=== PATIENT | female | born 1990 | race Caucasian/White ===

== ENCOUNTER 2016-12-10 13:45 | Emergency (ER) | payer OTHER ==
[~2016-12-10] VITALS: Ht 154.9 cm; Wt 60.0 kg
[~2016-12-10 13:45] MED LIST: APIDINJ; AZIT250T74 PO; CEFU1TAB43 PO; DIFL150T PO; FIORIC PO; REGL5TAB PO; TRAM50 PO
[2016-12-10 13:49] VITALS: BP 128/88; PULSE 107; RESP 16; TEMP 98.1; O2SAT 98
[2016-12-10] MEDS ORDERED: INSULIN GLULISINE SQ (14:17)
[2016-12-10] MEDS ORDERED: BUTA1CAP PO (14:19)
--- NOTE | 2016-12-10 14:35 | PD ---
HPI Chief Complaint: Headache Time Seen by Provider: 13:57 Travel History International Travel<30 days: No Contact w/Intl Traveler<30days: No Traveled to known affect area: No History of Present Illness HPI This is a 26-year-old female who presents to the emergency department with a history of type 1 diabetes with 4 days of headache. She says she started out with some neck pain which has gone to the posterior occiput, associated with some nausea today and some chills. Her symptoms are constant. She's had no photophobia. There are worse with movement particularly of her neck. She says this feels very similar to when she was hospitalized earlier this year for sepsis. She was found to have bilateral "kidney infections". She's not had a fever. She is concerned because she felt like the last time we were close to sending her home in the emergency department and she ended up with sepsis and she says that sometimes it can be very difficult to diagnose her with infections and she often has occult urinary tract infections. She also has a father who has a history of an aneurysm. The last time she was here she had a CTA of the head and neck which was unremarkable. She says her headache was gradual onset and has been worsening over the past 4 days. PFSH Past Medical History Hx Anticoagulant Therapy: No Autoimmune Disease: No Blood Disorders: No Anxiety: No Depression: No Cardiovascular Problems: No Diabetes: Yes (TYPE 1) Patient Takes Glucophage: No Diminished Hearing: No Gastrointestinal Disorders: No Genitourinary: Yes (FREQUENT UTI) Musculoskeletal: Yes Neurologic: No Psychiatric: No Reproductive: No Respiratory: No Immunizations Current: Yes Tetanus Vaccination: < 5 Years Influenza Vaccination: No ?: Not LMP: 12/02/16 Past Surgical History Body Medical Devices: INSULIN PUMP Insulin Pump: Yes Oral Surgery: Yes (WISDOM TEETH) Other Surgery: No Social History Alcohol Use: No Tobacco Use: No (never) Substance Use: No Allergies-Medications (Allergen,Severity, Reaction): Coded Allergies: Sulfa (Verified Allergy, Severe, SWELLING AND ITCHING, 12/10/16) *MDRO Multi-Drug Resistant Organism (Verified Adverse Reaction, Unknown, ) MRSA (leg wound) - 10/19/08 Reported Meds & Prescriptions Reported Meds & Active Scripts Active Reported Fioricet (Ijizswmgpr-Hdvlyafmiuybq-Krvrvaun) 50-300-40 Mg Cap 1 Cap PO Q6HR PRN [apidra pump] 0.05-0.09 Units SQ CONTINUOUS Review of Systems Except as stated in HPI: all other systems reviewed are Neg Physical Exam Narrative GENERAL:Well appearing, no acute distress SKIN: Warm and dry. HEAD: Atraumatic. Normocephalic. EYES: Pupils equal and round. No injection or drainage. ENT: Moist mucous membranes NECK: Trachea midline. Tenderness to palpation of the paracervical muscles bilaterally. No meningismus. CARDIOVASCULAR: Regular rate and rhythm. No murmur appreciated. RESPIRATORY: Clear to auscultation. Breath sounds equal bilaterally. GASTROINTESTINAL: Abdomen soft, non-tender, nondistended. : No CVA tenderness. MUSCULOSKELETAL: No obvious deformities. NEUROLOGICAL: Awake and alert. No obvious cranial nerve deficits. Moving all extremities. PSYCHIATRIC: Appropriate mood and affect; insight and judgment normal. Data Data Last Documented VS Vital Signs Date Time Temp Pulse Resp B/P Pulse Ox O2 Delivery O2 Flow Rate FiO2 12/10/16 14:09 16 98 Room Air 12/10/16 13:49 98.1 107 128/88 Orders Complete Blood Count With Diff (12/10/16 14:15) Comprehensive Metabolic Panel (12/10/16 14:15) ^ Insert Iv (12/10/16 14:15) Urinalysis - C+S If Indicated (12/10/16 14:15) Sodium Chlor 0.9% 1000 Ml Inj (Ns 1000 M (12/10/16 15:15) Sodium Chlor 0.9% 1000 Ml Inj (Ns 1000 M (12/10/16 15:15) Ceftriaxone Inj (Rocephin Inj) (12/10/16 15:45) Acetaminophen (Tylenol) (12/10/16 15:45) Labs Laboratory Tests Test 12/10/16 12/10/16 14:20 14:35 Urine Collection Type CLEAN CATCH Urine Color YELLOW Urine Turbidity SLIGHT Urine pH 5.5 Urine Specific [place] GREATER THAN 1.032 Urine Protein NEG mg/dL Urine Glucose (UA) 1000 OR GREATER mg/dL Urine Ketones TRACE mg/dL Urine Occult Blood LARGE Urine Nitrite NEG Urine Bilirubin NEG Urine Leukocyte Esterase TRACE Urine RBC 4-9 /hpf Urine WBC 0-2 /hpf Urine Squamous Epithelial 6-8 /hpf Cells Urine Amorphous Sediment LARGE Microscopic Urinalysis Comment CULT NOT INDICATED Urine Collection Time 1420 White Blood Count 9.3 TH/MM3 Red Blood Count 4.48 MIL/MM3 Hemoglobin 13.6 GM/DL Hematocrit 39.2 % Mean Corpuscular Volume 87.4 FL Mean Corpuscular Hemoglobin 30.3 PG Mean Corpuscular Hemoglobin 34.7 % Concent Red Cell Distribution Width 12.1 % Platelet Count 432 TH/MM3 Mean Platelet Volume 8.5 FL Neutrophils (%) (Auto) 73.6 % Lymphocytes (%) (Auto) 19.6 % Monocytes (%) (Auto) 5.2 % Eosinophils (%) (Auto) 0.9 % Basophils (%) (Auto) 0.7 % Neutrophils # (Auto) 6.8 TH/MM3 Lymphocytes # (Auto) 1.8 TH/MM3 Monocytes # (Auto) 0.5 TH/MM3 Eosinophils # (Auto) 0.1 TH/MM3 Basophils # (Auto) 0.1 TH/MM3 CBC Comment DIFF FINAL Differential Comment Sodium Level 135 MEQ/L Potassium Level 4.4 MEQ/L Chloride Level 100 MEQ/L Carbon Dioxide Level 23.2 MEQ/L Anion Gap 12 MEQ/L Blood Urea Nitrogen 17 MG/DL Creatinine 1.30 MG/DL Estimat Glomerular Filtration 50 ML/MIN Rate Random Glucose 472 MG/DL Calcium Level 8.3 MG/DL Total Bilirubin 0.4 MG/DL Aspartate Amino Transf 7 U/L (AST/SGOT) Alanine Aminotransferase 17 U/L (ALT/SGPT) Alkaline Phosphatase 74 U/L Total Protein 7.1 GM/DL Albumin 3.3 GM/DL [facility] Medical Decision Making Medical Screen Exam Complete: Yes Emergency Medical Condition: Yes Interpretation(s) Afebrile, slightly tachycardic, normotensive No leukocytosis Hyperglycemia Anion gap is 12 Creatinine is 1.3 Urinalysis: Some red blood cells and trace leukocyte esterase Differential Diagnosis Urinary tract infection, migraine, meningitis, epidural abscess Narrative Course This is a 26-year-old female who presents to the emergency department with a history of diabetes with a headache that's been present for 4 days, some neck pain and nausea. Patient is very anxious because she was hospitalized several months ago with sepsis. She is nontoxic appearing with no meningismus, no photophobia and she's awake and alert and conversant. She has no fevers. I obtain labs and she has no leukocytosis. She is hyperglycemic and she has renal insufficiency. I suspect this is on the setting of dehydration. She also says that she's about ready to change her insulin pump and she was does this on Sunday afternoon's. I had a long conversation with the patient. She certainly at risk for serious infections like meningitis or an epidural abscess but her exam is very reassuring as well as her blood work. She agrees to be discharged home and to come back if she develops any worsening symptoms including fever. I think it's reasonable to treat her empirically for urinary tract infection as the symptoms seemed to present similar to this in the past. Diagnosis Primary Impression: Headache Qualified Code: R51 - Acute nonintractable headache, unspecified headache type Patient Instructions: General Instructions Additional Instructions: If you develop severe or worsening abdominal pain, fever>100.4, persistent vomiting or inability to eat or drink return to the emergency department immediately. Follow up with your primary care physician in 1-2 days for a check-up if not improved. Med/Other Pt SpecificInfo: Prescription(s) given Scripts Fluconazole 150 Mg [id number] Mg PO ONCE PRN (ITCHING) #1 TAB Ref 0 Prov:Lisa Renee MD 12/10/16 Cephalexin (Keflex)500 Mg [id number] Mg PO Q12H 7 Days Ref 0 Prov:Lisa Renee MD 12/10/16 Disposition: 01 DISCHARGE HOME Condition: Stable Lisa Renee MD Dec 10, 2016 14:35
[2016-12-10 14:40] LABS: BLOOD, URINE LARGE (NEG); KETONE, URINE TRACE mg/dL (NEG); NITRITE,URINE NEG (NEG); PH, URINE 5.5 (5.0-8.5)
[2016-12-10 14:47] LABS: GLUCOSE,URINE 1000 OR GREATER mg/dL (NEG)
[2016-12-10 14:49] LABS: AUTOMATED NEUTROPHIL # 6.8 TH/MM3 (1.8-7.7); BASOPHIL # 0.1 TH/MM3 (0-0.2); BASOPHIL % 0.7 % (0.0-2.0); EOSINOPHIL # 0.1 TH/MM3 (0-0.4); EOSINOPHIL % 0.9 % (0.0-4.0); HEMATOCRIT 39.2 % (35.0-46.0); HEMO FLAGS DIFF FINAL; LYMPH % 19.6 % (9.0-44.0); LYMPHOCYTE # 1.8 TH/MM3 (1.0-4.8); MEAN CELL VOLUME 87.4 FL (80.0-100.0); MEAN CORPUSCULAR HEMOGLOBIN 30.3 PG (27.0-34.0); MEAN CORPUSCULAR HGB CONC 34.7 % (32.0-36.0); MONO % 5.2 % (0.0-8.0); NEUT % 73.6 % (16.0-70.0); PLATELET COUNT 432 TH/MM3 (150-450); RED BLOOD COUNT 4.48 MIL/MM3 (4.00-5.30); RED CELL DISTRIBUTION WIDTH 12.1 % (11.6-17.2); WHITE BLOOD COUNT 9.3 TH/MM3 (4.0-11.0)
[2016-12-10 14:51] LABS: METHOD OF COLLECTION CLEAN CATCH; URINE COLOR YELLOW (YELLW/STRAW)
[2016-12-10 14:52] LABS: COMMENT (UR) CULT NOT INDICATED; COMMENT2 (UR) MUCOUS PRESENT; CULTURE IF INDICATED CULT NOT INDICATED; WBC, URINE 0-2 /hpf (0-5)
[2016-12-10 14:56] LABS: CHLORIDE 100 MEQ/L (98-107); POTASSIUM 4.4 MEQ/L (3.5-5.1); SODIUM (NA) 135 MEQ/L (136-145)
[2016-12-10 15:00] LABS: ANION GAP 12 MEQ/L (5-15); BICARBONATE 23.2 MEQ/L (21.0-32.0)
[2016-12-10 15:10] LABS: ALKALINE PHOSPHATASE 74 U/L (45-117); ALT (GPT) 17 U/L (10-53); AST (GOT) 7 U/L (15-37); BLOOD UREA NITROGEN 17 MG/DL (7-18); GLOMERULAR FILTRATION RATE 50 ML/MIN (>89); TOTAL BILIRUBIN ADULT 0.4 MG/DL (0.2-1.0)
[2016-12-10] MEDS ORDERED: SODIUM CHLOR 0.9% 1000 ML INJ 1,000 ML IV ONE ×2 (15:15)
[2016-12-10] MEDS ORDERED: cefTRIAXone INJ 1,000 MG in SODIUM CHLORIDE 0.9% INJ 100 ML IV ONE (15:45)
[2016-12-10] MEDS ORDERED: ACETAMINOPHEN 500 MG CPLT PO ONE (15:45)
[2016-12-10] MEDS ORDERED: CEPH-460 PO (16:27)
[2016-12-10] MEDS ORDERED: FLUC150T PO (16:27)
[2016-12-10 16:31] VITALS: RESP 16
[2016-12-10 17:13] VITALS: BP 122/82
[2016-12-11] MEDS ORDERED: APIDINJ SQ (19:13)
== END 2016-12-10 17:16 | disposition home or self-care (01) ==
LOC: PHED 13:45
DX: R51 Headache (principal); M54.2 Cervicalgia; R11.0 Nausea; E10.9 Type 1 diabetes mellitus without complications
CPT/HCPCS: 80053; 81001; 85025; 96365; 99284; J0696; J7030

== ENCOUNTER 2016-12-28 19:09 | Emergency (ER) | payer OTHER ==
[~2016-12-28] VITALS: Ht 157.5 cm; Wt 62.2 kg
[~2016-12-28 19:09] MED LIST changes: -APIDINJ; +APIDINJ SQ; -AZIT250T74 PO; +BUTA1CAP PO; -CEFU1TAB43 PO; +CEPH-460 PO; -DIFL150T PO; -FIORIC PO; +FLUC150T PO; -REGL5TAB PO; -TRAM50 PO
[2016-12-28 19:21] VITALS: BP 142/95; PULSE 82; RESP 18; TEMP 98.1; O2SAT 98
== END 2016-12-28 20:53 | disposition left against medical advice (07) ==
LOC: PHED 19:09
DX: R19.7 Diarrhea, unspecified (principal)
CPT/HCPCS: 99281

== ENCOUNTER 2017-02-23 19:01 | Emergency (ER) | payer OTHER ==
[~2017-02-23] VITALS: Ht 154.9 cm; Wt 61.7 kg
[2017-02-23 19:08] VITALS: BP 114/85; PULSE 108; RESP 18; TEMP 98.4; O2SAT 98
--- NOTE | 2017-02-23 19:37 | PD ---
HPI Chief Complaint: Complaint Time Seen by Provider: 19:17 Travel History International Travel<30 days: No Contact w/Intl Traveler<30days: No Traveled to known affect area: No History of Present Illness HPI This 26-year-old female is complaining of some left flank pain. She has had pain like this in the past associated with urinary tract infections. Review of previous chart shows that she was admitted to this hospital a year ago with flank pain. At that time her urine was negative but a CT scan was suggestive of pyelonephritis. She went to her primary care doctor couple days ago and was started on Macrobid and she's been taking it for 2 days. She is allergic to sulfur. She has a history of type 1 diabetes for 16 years. PFSH Past Medical History Hx Anticoagulant Therapy: No Autoimmune Disease: No Blood Disorders: No Anxiety: No Depression: No Cardiovascular Problems: No Diabetes: Yes (TYPE 1) Diminished Hearing: No Gastrointestinal Disorders: No Genitourinary: Yes (FREQUENT UTI) Musculoskeletal: Yes Neurologic: No Psychiatric: No Reproductive: No Respiratory: No Immunizations Current: Yes ?: Not LMP: 01-29-17 Past Surgical History Body Medical Devices: INSULIN PUMP Insulin Pump: Yes Oral Surgery: Yes (WISDOM TEETH) Other Surgery: No Social History Alcohol Use: No Tobacco Use: No (never) Substance Use: No Allergies-Medications (Allergen,Severity, Reaction): Coded Allergies: Sulfa (Verified Allergy, Severe, SWELLING AND ITCHING, 02/23/17) Omnicef (Verified Allergy, Mild, ITCHING NAUSEA DIARRHEA, 02/23/17) *MDRO Multi-Drug Resistant Organism (Verified Adverse Reaction, Unknown, ) MRSA (leg wound) - 10/19/08 Uncoded Allergies: ZOYSN (Allergy, Mild, NAUSEA DIARRHEA ITCHING, 02/23/17) Reported Meds & Prescriptions Reported Meds & Active Scripts Active Ciprofloxacin (Ciprofloxacin HCl) 500 Mg Tab 500 Mg PO BID 10 Days Fluconazole 150 Mg Tab 150 Mg PO ONCE PRN Reported Apidra Inj (Insulin Glulisine Inj) 1,000 Unit/10 Ml Vial 0.05-0.09 Units SQ CONTINUOUS Review of Systems General / Constitutional: No: Fever, Chills Eyes: No: Diploplia, Blurred Vision HENT: No: Lightheadedness Cardiovascular: No: Chest Pain or Discomfort, Palpitations Respiratory: No: Cough, Shortness of Breath Gastrointestinal: No: Nausea, Vomiting Genitourinary: Positive: Frequency Skin: No Rash, No Itching Neurologic: No: Weakness Psychiatric: No: Anxiety Physical Exam Narrative GENERAL: Well-developed female SKIN: Focused skin assessment warm/dry. HEAD: Atraumatic. Normocephalic. EYES: Pupils equal and round. No scleral icterus. No injection or drainage. ENT: No nasal bleeding or discharge. Mucous membranes pink and moist. NECK: Trachea midline. No JVD. CARDIOVASCULAR: Regular rate and rhythm. No murmur appreciated. RESPIRATORY: No accessory muscle use. Clear to auscultation. Breath sounds equal bilaterally. GASTROINTESTINAL: Abdomen soft, non-tender, nondistended. Hepatic and splenic margins not palpable. Mild left CVA tenderness MUSCULOSKELETAL: No obvious deformities. No clubbing. No cyanosis. No edema. NEUROLOGICAL: Awake and alert. No obvious cranial nerve deficits. Motor grossly within normal limits. Normal speech. PSYCHIATRIC: Appropriate mood and affect; insight and judgment normal. Data Data Last Documented VS Vital Signs Date Time Temp Pulse Resp B/P Pulse Ox O2 Delivery O2 Flow Rate FiO2 02/23/17 19:08 98.4 108 18 114/85 98 Orders Urinalysis - C+S If Indicated (02/23/17 19:18) Complete Blood Count With Diff (02/23/17 19:33) Basic Metabolic Panel (Bmp) (02/23/17 19:33) Urine Culture (02/23/17 19:27) Sodium Chlor 0.9% 1000 Ml Inj (Ns 1000 M (02/23/17 20:00) Levofloxacin (Levaquin) (02/23/17 20:30) Labs Laboratory Tests Test 02/23/17 02/23/17 19:27 19:50 Urine Color YELLOW Urine Turbidity SLIGHT Urine pH 5.0 Urine Specific [place] 1.027 Urine Protein NEG mg/dL Urine Glucose (UA) 500 mg/dL Urine Ketones 40 mg/dL Urine Occult Blood NEG Urine Nitrite NEG Urine Bilirubin NEG Urine Leukocyte Esterase SMALL Urine RBC 0-2 /hpf Urine WBC 25-49 /hpf Urine Squamous Epithelial > 8 /hpf Cells Urine Bacteria MANY /hpf Microscopic Urinalysis Comment CULTURE INDICATED White Blood Count 8.6 TH/MM3 Red Blood Count 5.26 MIL/MM3 Hemoglobin 15.8 GM/DL Hematocrit 46.1 % Mean Corpuscular Volume 87.6 FL Mean Corpuscular Hemoglobin 30.0 PG Mean Corpuscular Hemoglobin 34.2 % Concent Red Cell Distribution Width 12.1 % Platelet Count 508 TH/MM3 Mean Platelet Volume 8.4 FL Neutrophils (%) (Auto) 66.9 % Lymphocytes (%) (Auto) 24.3 % Monocytes (%) (Auto) 4.9 % Eosinophils (%) (Auto) 1.5 % Basophils (%) (Auto) 2.4 % Neutrophils # (Auto) 5.8 TH/MM3 Lymphocytes # (Auto) 2.1 TH/MM3 Monocytes # (Auto) 0.4 TH/MM3 Eosinophils # (Auto) 0.1 TH/MM3 Basophils # (Auto) 0.2 TH/MM3 CBC Comment DIFF FINAL Differential Comment Sodium Level 133 MEQ/L Potassium Level 4.3 MEQ/L Chloride Level 99 MEQ/L Carbon Dioxide Level 26.6 MEQ/L Anion Gap 7 MEQ/L Blood Urea Nitrogen 13 MG/DL Creatinine 0.90 MG/DL Estimat Glomerular Filtration 77 ML/MIN Rate Random Glucose 368 MG/DL Calcium Level 9.1 MG/DL [facility] Medical Decision Making Medical Screen Exam Complete: Yes Emergency Medical Condition: Yes Medical Record Reviewed: Yes Differential Diagnosis Differential includes UTI, diabetes, Narrative Course Urine does show urinary infection. Her white count is normal. Her blood sugar is elevated and she is made a correction on her insulin pump. Diagnosis Primary Impression: Urinary tract infection Scripts Ciprofloxacin 500 Mg [id number] Mg PO BID 10 Days Ref 0 Prov:Dandre Rivero MD 02/23/17 Fluconazole 150 Mg [id number] Mg PO ONCE PRN (ITCHING) #1 TAB Ref 0 Prov:Dandre Rivero MD 02/23/17 Disposition: 01 DISCHARGE HOME Condition: Stable Dandre Rivero MD Feb 23, 2017 19:37
[2017-02-23 19:38] LABS: BLOOD, URINE NEG (NEG); GLUCOSE,URINE 500 mg/dL (NEG); KETONE, URINE 40 mg/dL (NEG); NITRITE,URINE NEG (NEG)
[2017-02-23 19:42] LABS: URINE COLOR YELLOW (YELLW/STRAW)
[2017-02-23 19:43] LABS: BACTERIA, URINE MANY /hpf; COMMENT (UR) CULTURE INDICATED; CULTURE IF INDICATED CULTURE INDICATED; RBC, URINE 0-2 /hpf (0-3); SQUAMOUS EPITHELIAL CELL URINE > 8 /hpf (0-5)
[2017-02-23 19:57] LABS: AUTOMATED NEUTROPHIL # 5.8 TH/MM3 (1.8-7.7); BASOPHIL # 0.2 TH/MM3 (0-0.2); BASOPHIL % 2.4 % (0.0-2.0); EOSINOPHIL # 0.1 TH/MM3 (0-0.4); EOSINOPHIL % 1.5 % (0.0-4.0); HEMATOCRIT 46.1 % (35.0-46.0); HEMO FLAGS DIFF FINAL; LYMPH % 24.3 % (9.0-44.0); LYMPHOCYTE # 2.1 TH/MM3 (1.0-4.8); MEAN CELL VOLUME 87.6 FL (80.0-100.0); MEAN CORPUSCULAR HGB CONC 34.2 % (32.0-36.0); MONO % 4.9 % (0.0-8.0); NEUT % 66.9 % (16.0-70.0); PLATELET COUNT 508 TH/MM3 (150-450); RED BLOOD COUNT 5.26 MIL/MM3 (4.00-5.30); RED CELL DISTRIBUTION WIDTH 12.1 % (11.6-17.2); WHITE BLOOD COUNT 8.6 TH/MM3 (4.0-11.0)
[2017-02-23] MEDS ORDERED: SODIUM CHLOR 0.9% 1000 ML INJ 1,000 ML IV ONE (20:00)
[2017-02-23 20:04] LABS: POTASSIUM 4.3 MEQ/L (3.5-5.1)
[2017-02-23 20:07] LABS: BICARBONATE 26.6 MEQ/L (21.0-32.0)
[2017-02-23] MEDS ORDERED: CIPR500T2 PO (20:20)
[2017-02-23] MEDS ORDERED: FLUC150T PO (20:20)
[2017-02-23] MEDS ORDERED: LEVOFLOXACIN 750 MG TAB PO ONE (20:30)
[2017-02-23 20:42] VITALS: BP 122/60; PULSE 89; RESP 16; O2SAT 99
== END 2017-02-23 20:54 | disposition home or self-care (01) ==
LOC: PHED 19:01
DX: N39.0 Urinary tract infection, site not specified (principal); E10.9 Type 1 diabetes mellitus without complications; Z79.4 Long term (current) use of insulin; Z87.448 Personal history of other diseases of urinary system; Z87.39 Personal history of other diseases of the musculoskeletal system and connective tissue
CPT/HCPCS: 80048; 81001; 85025; 87086; 99284; J7030

== ENCOUNTER 2017-06-15 19:56 | Emergency (ER) | payer OTHER ==
[~2017-06-15] VITALS: Ht 157.5 cm; Wt 62.8 kg
[~2017-06-15 19:56] MED LIST changes: -BUTA1CAP PO; -CEPH-460 PO; +CIPR500T2 PO
[2017-06-15 20:03] VITALS: BP 126/85; PULSE 110; RESP 18; TEMP 98.2; O2SAT 99
--- NOTE | 2017-06-15 20:54 | PD ---
HPI Chief Complaint: Complaint Time Seen by Provider: 20:47 Travel History International Travel<30 days: No Contact w/Intl Traveler<30days: No Traveled to known affect area: No History of Present Illness HPI 26-year-old female with history of type 1 diabetes 16 years presents to the emergency department by private transportation for complaint of foul smelling urine,urinary frequency, urgency, dysuria, and right flank pain. Patient reports that she frequently has urinary tract infections and has had sepsis secondary to pyelonephritis in the past. Patient states her blood sugar was elevated in the 300 range just prior to arrival to the emergency department and she wears an insulin pump administered insulin to adjust for this blood glucose. Patient states symptoms began this morning. Patient reports that she had associated sinus pressure drainage sore throat earache no neck pain or stiffness no headache no shortness of breath cough productive cough or chest pain. No generalized abdominal pain. Does report suprapubic pressure with urination denies vaginal discharge or vaginal bleeding. Patient's last period was 1 week ago and normal for her. Patient has been in the past and has a healthy 5-year-old child. No other family members recently ill. Patient reports that oftentimes her urinalysis is not markedly abnormal but they always requires antibiotic intervention when she has these symptoms. Patient denies any skin rash or joint pain. Again patient denies any fever or chills. Flank discomfort is 5/10 in intensity. Patient has taken no medications for pain. PFSH Past Medical History Narrative Medical Type 1 diabetes with insulin pump, recurrent UTI, Ab0; dental extraction; no tobacco use no alcohol use no substance use; nursing notes reviewed Hx Anticoagulant Therapy: No Autoimmune Disease: No Blood Disorders: No Anxiety: No Depression: No Cardiovascular Problems: No Diabetes: Yes (TYPE 1) Patient Takes Glucophage: No Diminished Hearing: No Gastrointestinal Disorders: No Genitourinary: Yes (FREQUENT UTI) Implanted Vascular Access Dvce: Yes Musculoskeletal: Yes Neurologic: No Psychiatric: No Reproductive: No Respiratory: No Immunizations Current: Yes ?: Not Past Surgical History Body Medical Devices: INSULIN PUMP Insulin Pump: Yes Oral Surgery: Yes (WISDOM TEETH) Other Surgery: No Social History Alcohol Use: No Tobacco Use: No (never) Substance Use: No Allergies-Medications (Allergen,Severity, Reaction): Coded Allergies: Sulfa (Verified Allergy, Severe, SWELLING AND ITCHING, 06/15/17) Omnicef (Verified Allergy, Mild, ITCHING NAUSEA DIARRHEA, 06/15/17) *MDRO Multi-Drug Resistant Organism (Verified Adverse Reaction, Unknown, ) MRSA (leg wound) - 10/19/08 Uncoded Allergies: ZOYSN (Allergy, Mild, NAUSEA DIARRHEA ITCHING, 02/23/17) Reported Meds & Prescriptions Reported Meds & Active Scripts Active Phenergan (Promethazine HCl) 25 Mg Tablet 25 Mg PO Q6H PRN Diflucan (Fluconazole) 150 Mg Tab 150 Mg PO ONCE Pyridium (Phenazopyridine HCl) 100 Mg Tab 100 Mg PO Q8H PRN Cipro (Ciprofloxacin HCl) 500 Mg Tab 500 Mg PO BID 7 Days Reported Apidra Inj (Insulin Glulisine Inj) 1,000 Unit/10 Ml Vial 0.05-0.09 Units SQ CONTINUOUS Review of Systems Except as stated in HPI: all other systems reviewed are Neg General / Constitutional: No: Fever, Chills HENT: Positive: Sore Throat, Congestion, Earache, No: Neck Pain Cardiovascular: No: Chest Pain or Discomfort Respiratory: No: Cough, Shortness of Breath Gastrointestinal: Positive: Nausea, Abdominal Pain, No: Vomiting, Diarrhea Genitourinary: Positive: Urgency, Frequency (suprapubic pressure), Dysuria, Flank Pain, No: Pelvic Pain, Discharge, Vaginal Bleeding Musculoskeletal: Positive: Pain, No: Myalgias, Arthralgias Skin: No Rash Neurologic: No: Weakness (low back pain flank pain), Dizziness Psychiatric: Positive: Anxiety Hematologic/Lymphatic: No: Lymph Node Enlargement Physical Exam Narrative GENERAL: Well-developed well-nourished female in no acute distress no respiratory distress vital signs within normal range except for tachycardia heart rate of 110(patient reports "I'm nervous") SKIN: Warm and dry. HEAD: Normocephalic. EYES: No scleral icterus. No injection or drainage. NECK: Supple, trachea midline. No JVD or lymphadenopathy. CARDIOVASCULAR: Regular rate and rhythm without murmurs, gallops, or rubs. RESPIRATORY: Breath sounds equal bilaterally. No accessory muscle use. GASTROINTESTINAL: Abdomen soft, non-tender, nondistended. MUSCULOSKELETAL: No cyanosis, or edema. BACK: Nontender without obvious deformity. Right sided CVA tenderness. Data Data Last Documented VS Vital Signs Date Time Temp Pulse Resp B/P Pulse Ox O2 Delivery O2 Flow Rate FiO2 06/16/17 00:14 90 18 107/74 99 06/15/17 22:42 Room Air 06/15/17 20:03 98.2 Orders Urinalysis - C+S If Indicated (06/15/17 20:34) Ed Urine Pregnancytest Poc (06/15/17 20:34) Blood Glucose (06/15/17 20:47) Group A Rapid Strep Screen (06/15/17 20:54) Influenzae A/B Antigen (06/15/17 20:54) Sodium Chlor 0.9% 1000 Ml Inj (Ns 1000 M (06/15/17 21:00) Complete Blood Count With Diff (06/15/17 20:54) Basic Metabolic Panel (Bmp) (06/15/17 20:54) Lactic Acid (06/15/17 20:58) Urine Culture (06/15/17 20:41) Strep Culture (Group A) (06/15/17 21:00) Blood Culture (06/15/17 22:03) Sodium Chlor 0.9% 1000 Ml Inj (Ns 1000 M (06/15/17 22:15) Ketorolac Inj (Toradol Inj) (06/15/17 22:15) Levofloxacin (Levaquin) (06/15/17 22:15) Beta Hydroxybutyrate (Acetone) (06/15/17 23:03) Lactic Acid (06/15/17 23:03) Labs Laboratory Tests Test 06/15/17 06/15/17 06/15/17 06/15/17 20:41 21:00 21:30 23:10 Urine Color STRAW Urine Turbidity CLEAR Urine pH 5.5 Urine Specific [place] 1.034 Urine Protein NEG mg/dL Urine Glucose (UA) 1000 OR GREATER mg/dL Urine Ketones TRACE mg/dL Urine Occult Blood NEG Urine Nitrite NEG Urine Bilirubin NEG Urine Leukocyte Esterase NEG Urine RBC 0-2 /hpf Urine WBC 3-5 /hpf Urine WBC Clumps FEW Urine Squamous Epithelial 0-5 /hpf Cells Urine Bacteria NONE /hpf Microscopic Urinalysis Comment CULTURE INDICATED White Blood Count 10.0 TH/MM3 Red Blood Count 4.48 MIL/MM3 Hemoglobin 13.3 GM/DL Hematocrit 38.8 % Mean Corpuscular Volume 86.7 FL Mean Corpuscular Hemoglobin 29.6 PG Mean Corpuscular Hemoglobin 34.2 % Concent Red Cell Distribution Width 12.0 % Platelet Count 432 TH/MM3 Mean Platelet Volume 8.5 FL Neutrophils (%) (Auto) 77.0 % Lymphocytes (%) (Auto) 16.7 % Monocytes (%) (Auto) 4.7 % Eosinophils (%) (Auto) 0.9 % Basophils (%) (Auto) 0.7 % Neutrophils # (Auto) 7.6 TH/MM3 Lymphocytes # (Auto) 1.7 TH/MM3 Monocytes # (Auto) 0.5 TH/MM3 Eosinophils # (Auto) 0.1 TH/MM3 Basophils # (Auto) 0.1 TH/MM3 CBC Comment DIFF FINAL Differential Comment Sodium Level 137 MEQ/L Potassium Level 4.0 MEQ/L Chloride Level 102 MEQ/L Carbon Dioxide Level 24.2 MEQ/L Anion Gap 11 MEQ/L Blood Urea Nitrogen 16 MG/DL Creatinine 0.96 MG/DL Estimat Glomerular Filtration 71 ML/MIN Rate Random Glucose 221 MG/DL Calcium Level 9.0 MG/DL Lactic Acid Level 2.5 mmol/L 1.8 mmol/L B-Hydroxybutyrate 0.14 MMOL/L MDM Medical Decision Making Medical Screen Exam Complete: Yes Emergency Medical Condition: Yes Medical Record Reviewed: Yes Interpretation(s) Vital Signs Date Time Temp Pulse Resp B/P Pulse Ox O2 Delivery O2 Flow Rate FiO2 06/16/17 00:14 90 18 107/74 99 06/15/17 23:30 18 06/15/17 22:42 109 18 114/61 97 Room Air 06/15/17 20:56 107 20 115/76 96 06/15/17 20:03 98.2 110 18 126/85 99 poc hcg: negative ua: Red blood cells chief clumped white blood cells culture indicated; positive glucose positive trace ketones CBC with automated differential values grossly within normal range no white cell count elevation mild left shift Lactic acid is elevated at 2.5 prior to IV fluid hydration; repeat lactic acid: 1.8 BHB: 0.14, not elevated Metabolic panel remarkable for elevation of random glucose 221 bedside glucose 211 patient reportedly prior to coming to the emergency department glucose at home was 325 and she adjusted her insulin infusion with her pump and administered a dose of insulin prior to coming to the emergency room. Patient' s bicarbonate and anion gap are found to be in normal range Vital Signs Date Time Temp Pulse Resp B/P Pulse Ox O2 Delivery O2 Flow Rate FiO2 06/15/17 20:56 107 20 115/76 96 06/15/17 20:03 98.2 110 18 126/85 99 CBC & BMP Diagram 06/15/17 21:00 Vital Signs Date Time Temp Pulse Resp B/P Pulse Ox O2 Delivery O2 Flow Rate FiO2 06/15/17 20:56 107 20 115/76 96 06/15/17 20:03 98.2 110 18 126/85 99 Differential Diagnosis Viral syndrome, pharyngitis, UTI, pyelonephritis, sepsis, hyperglycemia, DKA Narrative Course [id number] hCG ordered urinalysis ordered bedside glucose ordered rapid strep antigen and influenza screen ordered IV fluids administered specimens questions sent for resulting Bedside glucose 211 patient service criterion: Elevated heart rate greater than 90 however temperature, respiratory rate, white cell count does not meet SIRS criteria; patient presents with complaint of urinary frequency and dysuria with mild right flank discomfort urinalysis does show a few white blood cells and few clumped white blood cells culture is indicated and probable source of symptoms concerning for UTI/early pyelonephritis; lactic acid was collected and is elevated at 2.5. Patient given additional liter of normal saline repeat lactic acid 1.8 heart rate has responded well to fluid hydration beta hydroxybutyric acid is not elevated; patient feels well; patient has taken oral hydration well there has been no nausea or vomiting; patient is desirous of being discharged to home; patient is received Levaquin 500 mg by mouth and is stable for outpatient management. BGM: 112. Patient is encouraged to return immediately however for any increase in blood sugar or fatigue or fever or any concerns. Sepsis Criteria SIRS Criteria (2 or more): Heart rate over 90 Sepsis Criteria (SIRS+source): Infect source susp/known (urine) Severe Sepsis (+one): Lactate >2 Diagnosis Primary Impression: UTI (urinary tract infection) Qualified Code: N30.00 - Acute cystitis without hematuria Additional Impression: Type 1 diabetes mellitus with hyperglycemia, with long-term current use of insulin Referrals: Primary Care Physician 2 days Patient Instructions: General Instructions Additional Instructions: Increase fluid hydration Monitor blood sugars closely Complete course of antibiotic as prescribed Monitor temperature every 4 hours with thermometer and take acetaminophen/ Tylenol every 4 hours for fever 100.4F or greater Return to the emergency department for any concerns or change in condition Take Phenergan as prescribed as needed for nausea and/or vomiting Med/Other Pt SpecificInfo: Prescription(s) given Scripts Promethazine (Phenergan)25 Mg [id number] Mg PO Q6H PRN (NAUSEA OR VOMITING) #10 TAB Ref 0 Prov:Stephanie Bateman MD 06/16/17 Fluconazole (Diflucan)150 Mg [id number] Mg PO ONCE #1 TAB Ref 0 Prov:Stephanie Bateman MD 06/16/17 Phenazopyridine (Pyridium)100 Mg [id number] Mg PO Q8H PRN (DYSURIA) #6 TAB Ref 0 Prov:Stephanie Bateman MD 06/16/17 Ciprofloxacin (Cipro)500 Mg [id number] Mg PO BID 7 Days Ref 0 Prov:Stephanie Bateman MD 06/16/17 Disposition: 01 DISCHARGE HOME Condition: Stable Stephanie Bateman MD Jun 15, 2017 20:54
[2017-06-15 20:56] VITALS: BP 115/76; PULSE 107; RESP 20; O2SAT 96
[2017-06-15 20:56] LABS: BLOOD, URINE NEG (NEG); KETONE, URINE TRACE mg/dL (NEG); NITRITE,URINE NEG (NEG); PH, URINE 5.5 (5.0-8.5)
[2017-06-15 21:00] LABS: GLUCOSE,URINE 1000 OR GREATER mg/dL (NEG); URINE COLOR STRAW (YELLW/STRAW)
[2017-06-15] MEDS ORDERED: SODIUM CHLOR 0.9% 1000 ML INJ 1,000 ML IV ONE ×2 (21:00→22:15)
[2017-06-15 21:02] LABS: COMMENT (UR) CULTURE INDICATED; CULTURE IF INDICATED CULTURE INDICATED; RBC, URINE 0-2 /hpf (0-3); SQUAMOUS EPITHELIAL CELL URINE 0-5 /hpf (0-5)
[2017-06-15 21:15] LABS: AUTOMATED NEUTROPHIL # 7.6 TH/MM3 (1.8-7.7); BASOPHIL # 0.1 TH/MM3 (0-0.2); BASOPHIL % 0.7 % (0.0-2.0); EOSINOPHIL # 0.1 TH/MM3 (0-0.4); EOSINOPHIL % 0.9 % (0.0-4.0); HEMATOCRIT 38.8 % (35.0-46.0); LYMPH % 16.7 % (9.0-44.0); LYMPHOCYTE # 1.7 TH/MM3 (1.0-4.8); MEAN CELL VOLUME 86.7 FL (80.0-100.0); MEAN CORPUSCULAR HEMOGLOBIN 29.6 PG (27.0-34.0); MEAN CORPUSCULAR HGB CONC 34.2 % (32.0-36.0); MONO % 4.7 % (0.0-8.0); PLATELET COUNT 432 TH/MM3 (150-450); RED BLOOD COUNT 4.48 MIL/MM3 (4.00-5.30)
[2017-06-15 21:16] LABS: HEMO FLAGS DIFF FINAL
[2017-06-15 21:29] LABS: BICARBONATE 24.2 MEQ/L (21.0-32.0)
[2017-06-15] MEDS ORDERED: LEVOFLOXACIN 500 MG TAB PO ONE (22:15)
[2017-06-15] MEDS ORDERED: KETOROLAC TROMETHAMINE 30 MG/ML (IVP) VIAL IV PUSH ONE (22:15)
[2017-06-15 22:42] VITALS: BP 114/61; PULSE 109; RESP 18; O2SAT 97
[2017-06-15 23:30] VITALS: RESP 18
[2017-06-16] MEDS ORDERED: CIPR-9 PO (00:10)
[2017-06-16] MEDS ORDERED: DIFL150T PO (00:11)
[2017-06-16] MEDS ORDERED: PHEN0.4T PO (00:11)
[2017-06-16] MEDS ORDERED: PROM25TA10 PO (00:12)
[2017-06-16 00:14] VITALS: BP 107/74
[2017-06-26] MEDS ORDERED: MACR100C3 PO (13:30)
== END 2017-06-16 00:25 | disposition home or self-care (01) ==
LOC: PHED 19:56 → PHEFT 06-16 00:25
DX: N30.00 Acute cystitis without hematuria (principal); E10.65 Type 1 diabetes mellitus with hyperglycemia; Z79.4 Long term (current) use of insulin
CPT/HCPCS: 80048; 81001; 82010; 83605; 84703; 85025; 87040; 87081; 87086; 87804; 87880; 96374; 99284; J1885; J7030

== ENCOUNTER 2017-06-23 12:05 | Emergency (ER) | payer OTHER ==
[~2017-06-23] VITALS: Ht 157.5 cm; Wt 60.0 kg
[~2017-06-23 12:05] MED LIST changes: +CIPR-9 PO; -CIPR500T2 PO; +DIFL150T PO; -FLUC150T PO; +PHEN0.4T PO; +PROM25TA10 PO
[2017-06-23 12:17] VITALS: BP 122/78; PULSE 98; RESP 16; TEMP 98.2; O2SAT 99
[2017-06-23] MEDS ORDERED: SODIUM CHLORIDE 0.9% FLUSH 10 ML FLUSH IV FLUSH PRN (13:15)
--- NOTE | 2017-06-23 13:19 | PD ---
HPI Chief Complaint: Flank/Kidney Pain Time Seen by Provider: 12:49 Travel History International Travel<30 days: No Contact w/Intl Traveler<30days: No Traveled to known affect area: No History of Present Illness HPI Patient is a 26-year-old female presents for second evaluation of right lower back pain. Patient states that she thinks that she might have a kidney infection and wanted to make sure that she didn't have DKA. Patient states that she was here a few days ago and was prescribed Cipro which she is finished taking. She has an appointment with her urologist in 3 days but wanted to make sure that she wasn't in DKA today. Patient states the reason is because in February she was admitted for severe sepsis and although that her UA was negative and that time she ultimately was diagnosed with pyelonephritis on CAT scan. She denies any nausea vomiting denies abdominal pain denies any diarrhea constipation. Review of her records from June 15 ED visit shows the patient had a completely normal urinalysis at that time. Labs show that she was not in DKA. Her urine culture did not grow anything. PFSH Past Medical History Hx Anticoagulant Therapy: No Autoimmune Disease: No Blood Disorders: No Anxiety: No Depression: No Cardiovascular Problems: No Diabetes: Yes (TYPE 1) Patient Takes Glucophage: No Diminished Hearing: No Gastrointestinal Disorders: No Genitourinary: Yes (FREQUENT UTI) Implanted Vascular Access Dvce: Yes Musculoskeletal: Yes Neurologic: No Psychiatric: No Reproductive: No Respiratory: No Immunizations Current: Yes Tetanus Vaccination: Unknown Influenza Vaccination: No ?: Not LMP: 06-03-17 Past Surgical History Body Medical Devices: INSULIN PUMP Insulin Pump: Yes Oral Surgery: Yes (WISDOM TEETH) Other Surgery: No Social History Alcohol Use: No Tobacco Use: No (never) Substance Use: No Allergies-Medications (Allergen,Severity, Reaction): Coded Allergies: Sulfa (Sulfonamide Antibiotics) (Unverified Allergy, Severe, SWELLING AND ITCHING, 06/23/17) cefdinir (Unverified Allergy, Mild, ITCHING NAUSEA DIARRHEA, 06/23/17) *MDRO Multi-Drug Resistant Organism (Verified Adverse Reaction, Unknown, ) MRSA (leg wound) - 10/19/08 Uncoded Allergies: ZOYSN (Allergy, Mild, NAUSEA DIARRHEA ITCHING, 4/21/17) Reported Meds & Prescriptions Reported Meds & Active Scripts Active Macrodantin (Nitrofurantoin Macrocrystal) 100 Mg Cap 100 Mg PO BID Phenergan (Promethazine HCl) 25 Mg Tablet 25 Mg PO Q6H PRN Reported Apidra Inj (Insulin Glulisine Inj) 1,000 Unit/10 Ml Vial 0.05-0.09 Units SQ CONTINUOUS Review of Systems Except as stated in HPI: all other systems reviewed are Neg Physical Exam Narrative GENERAL: Well-developed well-nourished in no apparent distress SKIN: Focused skin assessment warm/dry. HEAD: Atraumatic. Normocephalic. EYES: Pupils equal and round. No scleral icterus. No injection or drainage. ENT: No nasal bleeding or discharge. Mucous membranes pink and moist. NECK: Trachea midline. No JVD. CARDIOVASCULAR: Regular rate and rhythm. No murmur appreciated. RESPIRATORY: No accessory muscle use. Clear to auscultation. Breath sounds equal bilaterally. GASTROINTESTINAL: Abdomen soft, non-tender, nondistended. Hepatic and splenic margins not palpable. No CVA tenderness MUSCULOSKELETAL: No obvious deformities. No clubbing. No cyanosis. No edema. NEUROLOGICAL: Awake and alert. No obvious cranial nerve deficits. Motor grossly within normal limits. Normal speech. PSYCHIATRIC: Appropriate mood and affect; insight and judgment normal. Data Data Last Documented VS Vital Signs Date Time Temp Pulse Resp B/P (MAP) Pulse Ox O2 Delivery O2 Flow Rate FiO2 06/23/17 14:05 90 18 108/75 (86) 100 Room Air 06/23/17 12:17 98.2 Orders Orders Basic Metabolic Panel (Bmp) (06/23/17 13:15) Complete Blood Count With Diff (06/23/17 13:15) Urinalysis - C+S If Indicated (06/23/17 13:15) Iv Access Insert/Monitor (06/23/17 13:15) Ecg Monitoring (06/23/17 13:15) Oximetry (06/23/17 13:15) Sodium Chloride 0.9% Flush (Ns Flush) (06/23/17 13:15) Ed Urine Pregnancytest Poc (06/23/17 13:15) Labs Laboratory Tests Test 06/23/17 13:00 White Blood Count 8.4 TH/MM3 Red Blood Count 4.97 MIL/MM3 Hemoglobin 14.5 GM/DL Hematocrit 43.0 % Mean Corpuscular Volume 86.5 FL Mean Corpuscular Hemoglobin 29.1 PG Mean Corpuscular Hemoglobin Concent 33.7 % Red Cell Distribution Width 12.2 % Platelet Count 460 TH/MM3 Mean Platelet Volume 8.4 FL Neutrophils (%) (Auto) 65.0 % Lymphocytes (%) (Auto) 27.4 % Monocytes (%) (Auto) 6.0 % Eosinophils (%) (Auto) 1.1 % Basophils (%) (Auto) 0.5 % Neutrophils # (Auto) 5.5 TH/MM3 Lymphocytes # (Auto) 2.3 TH/MM3 Monocytes # (Auto) 0.5 TH/MM3 Eosinophils # (Auto) 0.1 TH/MM3 Basophils # (Auto) 0.0 TH/MM3 CBC Comment DIFF FINAL Differential Comment Urine Collection Type CLEAN CATCH Urine Color YELLOW Urine Turbidity CLEAR Urine pH 5.5 Urine Specific [place] 1.031 Urine Protein NEG mg/dL Urine Glucose (UA) 1000 OR GREATER mg/dL Urine Ketones TRACE mg/dL Urine Occult Blood NEG Urine Nitrite NEG Urine Bilirubin NEG Urine Leukocyte Esterase NEG Urine RBC 0-3 /hpf Urine Squamous Epithelial Cells 0-5 /hpf Microscopic Urinalysis Comment CULT NOT INDICATED Urine Collection Time 13:00 Blood Urea Nitrogen 15 MG/DL Creatinine 0.89 MG/DL Random Glucose 251 MG/DL Calcium Level 8.9 MG/DL Sodium Level 138 MEQ/L Potassium Level 4.2 MEQ/L Chloride Level 103 MEQ/L Carbon Dioxide Level 25.5 MEQ/L Anion Gap 10 MEQ/L Estimat Glomerular Filtration Rate 78 ML/MIN [facility] Medical Decision Making Medical Screen Exam Complete: Yes Emergency Medical Condition: Yes Differential Diagnosis Hyperglycemia, pyelonephritis, UTI, muscle skeletal back pain. Narrative Course Patient roomed in the emergency department, appears quite comfortable, does not appear toxic in any way. Somewhat anxious over her past medical history of pyelonephritis causing sepsis in DKA. Blood work sent and certainly no evidence of DKA and no evidence of urinary tract infection either. I reviewed her records from February when she was admitted for UTI and sepsis and she did have some pyuria at that time which was fairly unimpressive. At this time I think risks outweigh potential benefits regarding CAT scan. There is no indication for antibiotics at this time. Discussed with the patient to follow up with her primary care physician. On the subject of her pain thinks is much more likely musculoskeletal given her exam. She is stable for discharge. Diagnosis Primary Impression: Hyperglycemia due to type 1 diabetes mellitus Additional Impression: Back pain Disposition: 01 DISCHARGE HOME Condition: Stable Ion Crowder MD Jun 23, 2017 13:19
[2017-06-23 13:24] LABS: AUTOMATED NEUTROPHIL # 5.5 TH/MM3 (1.8-7.7); BASOPHIL % 0.5 % (0.0-2.0); EOSINOPHIL # 0.1 TH/MM3 (0-0.4); EOSINOPHIL % 1.1 % (0.0-4.0); HEMO FLAGS DIFF FINAL; LYMPH % 27.4 % (9.0-44.0); LYMPHOCYTE # 2.3 TH/MM3 (1.0-4.8); MEAN CELL VOLUME 86.5 FL (80.0-100.0); MEAN CORPUSCULAR HEMOGLOBIN 29.1 PG (27.0-34.0); MEAN CORPUSCULAR HGB CONC 33.7 % (32.0-36.0); PLATELET COUNT 460 TH/MM3 (150-450); RED BLOOD COUNT 4.97 MIL/MM3 (4.00-5.30); RED CELL DISTRIBUTION WIDTH 12.2 % (11.6-17.2); WHITE BLOOD COUNT 8.4 TH/MM3 (4.0-11.0)
[2017-06-23 13:25] LABS: BLOOD, URINE NEG (NEG); KETONE, URINE TRACE mg/dL (NEG); NITRITE,URINE NEG (NEG); PH, URINE 5.5 (5.0-8.5)
[2017-06-23 13:29] LABS: GLUCOSE,URINE 1000 OR GREATER mg/dL (NEG)
[2017-06-23 13:30] LABS: COMMENT (UR) CULT NOT INDICATED; CULTURE IF INDICATED CULT NOT INDICATED; METHOD OF COLLECTION CLEAN CATCH; RBC, URINE 0-3 /hpf (0-3); SQUAMOUS EPITHELIAL CELL URINE 0-5 /hpf (0-5); URINE COLOR YELLOW (YELLW/STRAW)
[2017-06-23 13:36] LABS: POTASSIUM 4.2 MEQ/L (3.5-5.1)
[2017-06-23 13:39] LABS: BICARBONATE 25.5 MEQ/L (21.0-32.0)
[2017-06-23 14:01] VITALS: O2SAT 98
[2017-06-23 14:05] VITALS: BP 108/75; PULSE 90; RESP 18; O2SAT 100
[2017-06-26] MEDS ORDERED: MACR100C3 PO (13:30)
== END 2017-06-23 14:24 | disposition home or self-care (01) ==
LOC: PHEFT 12:05
DX: E10.65 Type 1 diabetes mellitus with hyperglycemia (principal); M54.5 Low back pain; Z79.4 Long term (current) use of insulin
CPT/HCPCS: 80048; 81001; 84703; 85025; 99283

== ENCOUNTER 2018-02-01 18:25 | Emergency (ER) | payer OTHER ==
[~2018-02-01] VITALS: Ht 157.5 cm; Wt 623.0 kg
[~2018-02-01 18:25] MED LIST changes: -CIPR-9 PO; -DIFL150T PO; +MACR100C3 PO; -PHEN0.4T PO
[2018-02-01 18:34] VITALS: BP 123/76; PULSE 106; RESP 16; TEMP 98.1; O2SAT 97
[2018-02-01 18:52] LABS: BILIRUBIN, URINE NEG (NEG); BLOOD, URINE LARGE (NEG); GLUCOSE,URINE 1000 OR GREATER mg/dL (NEG); KETONE, URINE 40 mg/dL (NEG); NITRITE,URINE NEG (NEG); PH, URINE 5.5 (5.0-8.5); URINE COLOR YELLOW (YELLW/STRAW); URINE LEUKOCYTE ESTERASE NEG (NEG)
[2018-02-01 19:03] LABS: BACTERIA, URINE RARE /hpf; SQUAMOUS EPITHELIAL CELL URINE 0-5 /hpf (0-5); WBC, URINE 15-19 /hpf (0-5); WHITE BLOOD CELL CLUMPS FEW
[2018-02-01] MEDS ORDERED: SODIUM CHLOR 0.9% 1000 ML INJ 1,000 ML IV ONE ×2 (19:06→19:36)
[2018-02-01 19:10] VITALS: O2SAT 98
[2018-02-01] MEDS ORDERED: SODIUM CHLORIDE 0.9% FLUSH 10 ML FLUSH IVF PRN (19:15)
[2018-02-01] MEDS ORDERED: LEVOFLOXACIN 750 MG PREMIX INJ 150 ML IV ONE (19:15)
[2018-02-01] MEDS ORDERED: INSULIN HUMAN REGULAR 1,000 UNITS/10 ML VIAL IV PUSH ONE (19:15)
[2018-02-01 19:33] LABS: AUTOMATED NEUTROPHIL # 5.8 TH/MM3 (1.8-7.7); BASOPHIL % 0.4 % (0.0-2.0); EOSINOPHIL # 0.1 TH/MM3 (0-0.4); HEMATOCRIT 42.3 % (35.0-46.0); HEMOGLOBIN 13.6 GM/DL (11.6-15.3); LYMPH % 16.3 % (9.0-44.0); LYMPHOCYTE # 1.2 TH/MM3 (1.0-4.8); MEAN CORPUSCULAR HGB CONC 32.2 % (32.0-36.0); MEAN PLATELET VOLUME 9.1 FL (7.0-11.0); MONO % 5.3 % (0.0-8.0); MONOCYTE # 0.4 TH/MM3 (0-0.9); PLATELET COUNT 398 TH/MM3 (150-450); RED BLOOD COUNT 4.71 MIL/MM3 (4.00-5.30); RED CELL DISTRIBUTION WIDTH 12.1 % (11.6-17.2); WHITE BLOOD COUNT 7.5 TH/MM3 (4.0-11.0)
[2018-02-01 19:44] LABS: CHLORIDE 93 MEQ/L (98-107); SODIUM (NA) 126 MEQ/L (136-145)
[2018-02-01 19:47] LABS: CALCIUM 8.4 MG/DL (8.5-10.1)
[2018-02-01 19:48] LABS: ALBUMIN 3.1 GM/DL (3.4-5.0); BICARBONATE 23.1 MEQ/L (21.0-32.0); BLOOD UREA NITROGEN 17 MG/DL (7-18)
[2018-02-01 19:50] LABS: ALT (GPT) 15 U/L (10-53); AST (GOT) 10 U/L (15-37); GLOMERULAR FILTRATION RATE 55 ML/MIN (>89)
[2018-02-01 19:52] LABS: TOTAL BILIRUBIN ADULT 0.5 MG/DL (0.2-1.0); TOTAL PROTEIN 7.1 GM/DL (6.4-8.2)
[2018-02-01 19:55] LABS: ALKALINE PHOSPHATASE 91 U/L (45-117)
[2018-02-01 20:00] VITALS: BP 103/62; PULSE 103; RESP 18; O2SAT 97
[2018-02-01 20:00] LABS: GLUCOSE,RANDOM 699 MG/DL (74-106)
--- NOTE | 2018-02-01 20:51 | PD ---
HPI Chief Complaint: Diabetic Time Seen by Provider: 18:51 Travel History International Travel<30 days: No Contact w/Intl Traveler<30days: No Traveled to known affect area: No History of Present Illness HPI 27-year-old female complains of elevated blood sugar as well as right flank pain. She reports a history of UTIs and typically is asymptomatic until hyperglycemia is observed. She notes her blood glucose was in the 500s at home and for that reason she came here investigate potential urinary tract infection. She denies dysuria frequency. No fever or vomiting. PFSH Past Medical History Hx Anticoagulant Therapy: No Autoimmune Disease: No Blood Disorders: No Anxiety: No Depression: No Cardiovascular Problems: No Diabetes: Yes (TYPE 1) Patient Takes Glucophage: No Diminished Hearing: No Gastrointestinal Disorders: No Genitourinary: Yes (FREQUENT UTI) Implanted Vascular Access Dvce: Yes Musculoskeletal: Yes Neurologic: No Psychiatric: No Reproductive: No Respiratory: No Immunizations Current: Yes Tetanus Vaccination: Unknown Influenza Vaccination: No ?: Unknown LMP: NOW Past Surgical History Body Medical Devices: INSULIN PUMP Insulin Pump: Yes Oral Surgery: Yes (WISDOM TEETH) Other Surgery: No Social History Alcohol Use: No Tobacco Use: No (never) Substance Use: No Allergies-Medications (Allergen,Severity, Reaction): Coded Allergies: Sulfa (Sulfonamide Antibiotics) (Unverified Allergy, Severe, SWELLING AND ITCHING, 02/01/18) cefdinir (Unverified Allergy, Mild, ITCHING NAUSEA DIARRHEA, 02/01/18) *MDRO Multi-Drug Resistant Organism (Verified Adverse Reaction, Unknown, ) MRSA (leg wound) - 10/19/08 Uncoded Allergies: ZOYSN (Allergy, Mild, NAUSEA DIARRHEA ITCHING, 02/23/17) Reported Meds & Prescriptions Reported Meds & Active Scripts Active Levaquin (Levofloxacin) 500 Mg Tablet 500 Mg PO DAILY 5 Days Reported Apidra Inj (Insulin Glulisine Inj) 1,000 Unit/10 Ml Vial 0.05-0.09 Units SQ CONTINUOUS Review of Systems Except as stated in HPI: all other systems reviewed are Neg General / Constitutional: No: Fever HENT: No: Lightheadedness Physical Exam Narrative GENERAL: 27-year-old female pleasant well-nourished and developed Vital Signs Date Time Temp Pulse Resp B/P (MAP) Pulse Ox O2 Delivery O2 Flow Rate FiO2 02/01/18 19:15 Room Air 02/01/18 19:10 98 02/01/18 18:34 98.1 106 16 123/76 (92) 97 SKIN: Warm and dry. HEAD: Atraumatic. Normocephalic. EYES: Pupils equal and round. No scleral icterus. No injection or drainage. ENT: No nasal bleeding or discharge. Mucous membranes pink and moist. NECK: Trachea midline. No JVD. CARDIOVASCULAR: Regular rate and rhythm. RESPIRATORY: No accessory muscle use. Clear to auscultation. Breath sounds equal bilaterally. GASTROINTESTINAL: Abdomen soft, non-tender, nondistended. Hepatic and splenic margins not palpable. Minimal tenderness to percussion of the right flank. MUSCULOSKELETAL: Extremities without clubbing, cyanosis, or edema. No obvious deformities. NEUROLOGICAL: Awake and alert. No obvious cranial nerve deficits. Motor grossly within normal limits. Five out of 5 muscle strength in the arms and legs. Normal speech. PSYCHIATRIC: Appropriate mood and affect; insight and judgment normal. Data Data Last Documented VS Vital Signs Date Time Temp Pulse Resp B/P (MAP) Pulse Ox O2 Delivery O2 Flow Rate FiO2 02/01/18 19:15 Room Air 02/01/18 19:10 98 02/01/18 18:34 98.1 106 16 123/76 (92) Orders Orders Urinalysis - C+S If Indicated (02/01/18 18:40) Ed Urine Pregnancytest Poc (02/01/18 18:40) Urine Culture (02/01/18 18:38) Complete Blood Count With Diff (02/01/18 19:06) Comprehensive Metabolic Panel (02/01/18 19:06) Beta Hydroxybutyrate (Acetone) (02/01/18 19:06) Urinalysis - C+S If Indicated (02/01/18 19:06) Blood Glucose (02/01/18 19:06) Blood Glucose (02/01/18 20:06) Ecg Monitoring (02/01/18 19:06) Iv Access Insert/Monitor (02/01/18 19:06) Oximetry (02/01/18 19:06) NPO (02/01/18 19:06) Sodium Chlor 0.9% 1000 Ml Inj (Ns 1000 M (02/01/18 19:06) Sodium Chlor 0.9% 1000 Ml Inj (Ns 1000 M (02/01/18 19:36) Sodium Chloride 0.9% Flush (Ns Flush) (02/01/18 19:15) Lipase (02/01/18 19:06) Insulin Human Regular Inj (Novolin R Inj (02/01/18 19:15) Levofloxacin 750 Mg Premix Inj (Levaquin (02/01/18 19:15) Acetaminophen (Tylenol) (02/01/18 21:15) Ed Discharge Order (02/01/18 21:14) Labs Laboratory Tests Test 02/01/18 18:38 02/01/18 19:17 Urine Color YELLOW Urine Turbidity CLEAR Urine pH 5.5 Urine Specific [place] 1.010 Urine Protein NEG mg/dL Urine Glucose (UA) 1000 OR GREATER mg/dL Urine Ketones 40 mg/dL Urine Occult Blood LARGE Urine Nitrite NEG Urine Bilirubin NEG Urine Urobilinogen 0.2 MG/DL Urine Leukocyte Esterase NEG Urine WBC 15-19 /hpf Urine WBC Clumps FEW Urine Squamous Epithelial Cells 0-5 /hpf Urine Transitional Epithelial Cells /hpf Urine Bacteria RARE /hpf Microscopic Urinalysis Comment CULTURE INDICATED White Blood Count 7.5 TH/MM3 Red Blood Count 4.71 MIL/MM3 Hemoglobin 13.6 GM/DL Hematocrit 42.3 % Mean Corpuscular Volume 90.0 FL Mean Corpuscular Hemoglobin 29.0 PG Mean Corpuscular Hemoglobin Concent 32.2 % Red Cell Distribution Width 12.1 % Platelet Count 398 TH/MM3 Mean Platelet Volume 9.1 FL Neutrophils (%) (Auto) 77.0 % Lymphocytes (%) (Auto) 16.3 % Monocytes (%) (Auto) 5.3 % Eosinophils (%) (Auto) 1.0 % Basophils (%) (Auto) 0.4 % Neutrophils # (Auto) 5.8 TH/MM3 Lymphocytes # (Auto) 1.2 TH/MM3 Monocytes # (Auto) 0.4 TH/MM3 Eosinophils # (Auto) 0.1 TH/MM3 Basophils # (Auto) 0.0 TH/MM3 CBC Comment DIFF FINAL Differential Comment Blood Urea Nitrogen 17 MG/DL Creatinine 1.20 MG/DL Random Glucose 699 MG/DL Total Protein 7.1 GM/DL Albumin 3.1 GM/DL Calcium Level 8.4 MG/DL Alkaline Phosphatase 91 U/L Aspartate Amino Transf (AST/SGOT) 10 U/L Alanine Aminotransferase (ALT/SGPT) 15 U/L Total Bilirubin 0.5 MG/DL Sodium Level 126 MEQ/L Potassium Level 4.1 MEQ/L Chloride Level 93 MEQ/L Carbon Dioxide Level 23.1 MEQ/L Anion Gap 10 MEQ/L Estimat Glomerular Filtration Rate 55 ML/MIN Lipase 231 U/L B-Hydroxybutyrate 1.87 MMOL/L MDM Medical Decision Making Medical Screen Exam Complete: Yes Emergency Medical Condition: Yes Medical Record Reviewed: Yes Differential Diagnosis Constipation, Gastritis, Acute Cholecystitis, Biliary Colic, Pancreatitis, WARREN , Hepatitis, Bowel Obstruction, Cystitis, Mesenteric Ischemia, AAA, Appendicitis , Renal Stone/Hydronephrosis, GERD, perforated viscous Narrative Course CBC & BMP Diagram 02/01/18 19:17 Total Protein 7.1, Albumin 3.1 L, Calcium Level 8.4 L, Alkaline Phosphatase 91, Aspartate Amino Transf (AST/SGOT) 10 L, Alanine Aminotransferase (ALT/SGPT) 15, Total Bilirubin 0.5 Anion gap is 10 Beta hydroxybutyrate is 1.7 Urinalysis shows UTI The patient received IV fluids, 3 L normal saline as well as Levaquin 10 units of insulin Blood glucose decreased to 350 and the patient toleratedoral hydration without difficulty The patient will be sent home with Levaquin prescription and return precautions Mild generalized cephalgia treated with Tylenol Diagnosis Primary Impression: Urinary tract infection Qualified Codes: N30.00 - Acute cystitis without hematuria Additional Impressions: Hyperglycemia due to type 1 diabetes mellitus Headache Qualified Codes: R51 - Headache Referrals: Primary Care Physician 2 days Med/Other Pt SpecificInfo: Prescription(s) given Scripts Levofloxacin (Levaquin) 500 Mg Tablet 500 MG PO DAILY for Infection for 5 Days, #5 TAB 0 Refills Prov: Davian Pérez MD 02/01/18 Disposition: DISCHARGE HOME Condition: Stable Davian Pérez MD Feb 01, 2018 20:51
[2018-02-01] MEDS ORDERED: LEVA500T33 PO (21:12)
[2018-02-01] MEDS ORDERED: ACETAMINOPHEN 325 MG TAB PO ONE (21:15)
[2018-02-01 21:45] VITALS: BP 108/60; TEMP 98.4
== END 2018-02-01 21:50 | disposition home or self-care (01) ==
LOC: PHED 18:25
DX: N39.0 Urinary tract infection, site not specified (principal); E10.65 Type 1 diabetes mellitus with hyperglycemia; R51 Headache; Z87.440 Personal history of urinary (tract) infections; Z79.4 Long term (current) use of insulin; Z79.899 Other long term (current) drug therapy; Z88.2 Allergy status to sulfonamides; Z88.8 Allergy status to other drugs, medicaments and biological substances
CPT/HCPCS: 80053; 81001; 82010; 83690; 84703; 85025; 87086; 96365; 96366; 96375; 99284; J1815; J1956; J7030

== ENCOUNTER 2018-03-05 23:11 | Observation (INO) | payer OTHER ==
[~2018-03-05] VITALS: Ht 157.5 cm; Wt 63.7 kg
[~2018-03-05 23:11] MED LIST changes: +LEVA500T33 PO; -MACR100C3 PO; -PROM25TA10 PO
[2018-03-05 23:14] VITALS: BP 138/73; PULSE 93; RESP 20; TEMP 98.4; O2SAT 99
[2018-03-05 23:34] LABS: BILIRUBIN, URINE NEG (NEG); BLOOD, URINE MOD (NEG); GLUCOSE,URINE 1000 OR GREATER mg/dL (NEG); KETONE, URINE 40 mg/dL (NEG); NITRITE,URINE NEG (NEG); URINE COLOR YELLOW (YELLW/STRAW); URINE LEUKOCYTE ESTERASE NEG (NEG)
[2018-03-05 23:38] LABS: WBC, URINE 0-2 /hpf (0-5)
[2018-03-05 23:39] LABS: BACTERIA, URINE OCC /hpf
[2018-03-05] MEDS ORDERED: SODIUM CHLOR 0.9% 1000 ML INJ 1,000 ML IV ONE ×2 (23:55)
[2018-03-06] MEDS ORDERED: SODIUM CHLORIDE 0.9% FLUSH 10 ML FLUSH IVF PRN
[2018-03-06 00:10] VITALS: RESP 18; O2SAT 98
[2018-03-06 00:33] LABS: BASOPHIL # 0.1 TH/MM3 (0-0.2); BASOPHIL % 1.4 % (0.0-2.0); EOSINOPHIL # 0.1 TH/MM3 (0-0.4); EOSINOPHIL % 1.8 % (0.0-4.0); HEMATOCRIT 39.1 % (35.0-46.0); HEMOGLOBIN 13.2 GM/DL (11.6-15.3); LYMPH % 30.2 % (9.0-44.0); MEAN CELL VOLUME 87.5 FL (80.0-100.0); MEAN CORPUSCULAR HEMOGLOBIN 29.6 PG (27.0-34.0); MEAN CORPUSCULAR HGB CONC 33.8 % (32.0-36.0); MEAN PLATELET VOLUME 8.9 FL (7.0-11.0); MONO % 6.8 % (0.0-8.0); MONOCYTE # 0.4 TH/MM3 (0-0.9); NEUT % 59.8 % (16.0-70.0); PLATELET COUNT 446 TH/MM3 (150-450); RED BLOOD COUNT 4.47 MIL/MM3 (4.00-5.30); RED CELL DISTRIBUTION WIDTH 12.2 % (11.6-17.2); WHITE BLOOD COUNT 6.6 TH/MM3 (4.0-11.0)
[2018-03-06 00:41] LABS: CHLORIDE 102 MEQ/L (98-107); SODIUM (NA) 137 MEQ/L (136-145)
[2018-03-06 00:44] LABS: ALBUMIN 3.2 GM/DL (3.4-5.0); BICARBONATE 24.5 MEQ/L (21.0-32.0); CALCIUM 8.8 MG/DL (8.5-10.1); GLUCOSE,RANDOM 391 MG/DL (74-106); MAGNESIUM 2.1 MG/DL (1.5-2.5)
[2018-03-06 00:45] LABS: BLOOD UREA NITROGEN 14 MG/DL (7-18)
[2018-03-06 00:47] LABS: ALT (GPT) 19 U/L (10-53); AST (GOT) 9 U/L (15-37)
[2018-03-06 00:48] LABS: GLOMERULAR FILTRATION RATE 61 ML/MIN (>89)
[2018-03-06 00:49] LABS: TOTAL BILIRUBIN ADULT 0.3 MG/DL (0.2-1.0)
[2018-03-06 00:50] LABS: ALKALINE PHOSPHATASE 81 U/L (45-117)
[2018-03-06] MEDS ORDERED: INSULIN HUMAN REGULAR 1,000 UNITS/10 ML VIAL IV PUSH ONE (01:00)
[2018-03-06] MEDS ORDERED: SODIUM CHLORID 0.9% 500 ML INJ 500 ML IV SCH (01:15)
[2018-03-06] MEDS ORDERED: VANCOMYCIN INJ 1,000 MG in SODIUM CHLOR 0.9% 250 ML INJ 250 ML IV ONE (01:15)
[2018-03-06] MEDS ORDERED: CEFEPIME INJ 1,000 MG in SODIUM CHLORIDE 0.9% INJ 100 ML IV ONE (01:15)
--- NOTE | 2018-03-06 01:30 | PD ---
HPI Chief Complaint: Complaint Time Seen by Provider: 23:53 Travel History International Travel<30 days: No Contact w/Intl Traveler<30days: No Traveled to known affect area: No History of Present Illness HPI 27-year-old female with past medical history of type 1 diabetes presents to the emergency room was elevated glucose level and poorly controlled diabetes with fever, chills, right flank pain, nausea and vomiting. Patient has been on several antibiotics recently for presumed UTI. Patient finished 2 courses of Levaquin and is currently on Macrobid. Patient does not feel any better her blood glucose level today was over 400. Patient has been admitted in the past to the hospital several times for pyelonephritis with sepsis. Patient states that her symptoms today are similar to the of her having DKA and sepsis PFSH Past Medical History Hx Anticoagulant Therapy: No Autoimmune Disease: No Blood Disorders: No Anxiety: No Depression: No Cardiovascular Problems: No Diabetes: Yes (TYPE 1) Patient Takes Glucophage: No Diminished Hearing: No Gastrointestinal Disorders: No Genitourinary: Yes (FREQUENT UTI) Implanted Vascular Access Dvce: Yes Musculoskeletal: Yes Neurologic: No Psychiatric: No Reproductive: No Respiratory: No Immunizations Current: Yes Tetanus Vaccination: Unknown Influenza Vaccination: No ?: Not LMP: 03/05/18 Past Surgical History Body Medical Devices: INSULIN PUMP Insulin Pump: Yes Oral Surgery: Yes (WISDOM TEETH) Other Surgery: No Social History Alcohol Use: No Tobacco Use: No (never) Substance Use: No Allergies-Medications (Allergen,Severity, Reaction): Coded Allergies: Sulfa (Sulfonamide Antibiotics) (Unverified Allergy, Severe, SWELLING AND ITCHING, 03/05/18) cefdinir (Unverified Allergy, Mild, ITCHING NAUSEA DIARRHEA, 03/05/18) *MDRO Multi-Drug Resistant Organism (Verified Adverse Reaction, Unknown, ) MRSA (leg wound) - 10/19/08 Uncoded Allergies: ZOYSN (Allergy, Mild, NAUSEA DIARRHEA ITCHING, 02/23/17) Reported Meds & Prescriptions Reported Meds & Active Scripts Active Levaquin (Levofloxacin) 500 Mg Tablet 500 Mg PO DAILY 5 Days Reported Apidra Inj (Insulin Glulisine Inj) 1,000 Unit/10 Ml Vial 0.05-0.09 Units SQ CONTINUOUS Review of Systems Except as stated in HPI: all other systems reviewed are Neg General / Constitutional: No: Fever, Chills Eyes: No: Blurred Vision, Redness, Pain HENT: No: Rhinorrhea, Congestion, Neck Stiffness, Neck Pain, Earache Cardiovascular: No: Chest Pain or Discomfort, Palpitations, Dyspnea on exertion Respiratory: No: Cough, Shortness of Breath, Wheezing Gastrointestinal: Positive: Nausea, Vomiting, Abdominal Pain, No: Diarrhea, Hematochezia, Constipation Genitourinary: Positive: Frequency, No: Dysuria Musculoskeletal: No: Myalgias Skin: No Rash, No Hives Neurologic: No: Weakness, Dizziness, Syncope, Headache, Slurred Speech, Seizures Psychiatric: No: Suicidal Ideations Physical Exam Narrative Vital Signs Date Time Temp Pulse Resp B/P (MAP) Pulse Ox O2 Delivery O2 Flow Rate FiO2 03/06/18 00:10 18 98 Room Air 03/05/18 23:14 98.4 93 20 138/73 (94) 99 GENERAL: Patient is alert and oriented -3 SKIN: Focused skin assessment warm/dry. HEAD: Atraumatic. Normocephalic. EYES: Pupils equal and round. No scleral icterus. No injection or drainage. ENT: No nasal bleeding or discharge. Mucous membranes pink and moist. NECK: Trachea midline. No JVD. CARDIOVASCULAR: Regular rate and rhythm. No murmur appreciated. RESPIRATORY: No accessory muscle use. Clear to auscultation. Breath sounds equal bilaterally. GASTROINTESTINAL: Abdomen soft, tender right flank and tender CVA , nondistended. Hepatic and splenic margins not palpable. MUSCULOSKELETAL: No obvious deformities. No clubbing. No cyanosis. No edema. NEUROLOGICAL: Awake and alert. No obvious cranial nerve deficits. Motor grossly within normal limits. Normal speech. PSYCHIATRIC: Appropriate mood and affect; insight and judgment normal. GENITOURINARY: Normal external genitalia without lesions or erythema. Vaginal vault with blood Cervical os was closed without drainage. No cervical motion tenderness. Uterus nontender and nonenlarged. Bilateral adnexa nontender without masses. IUD strings are visible through the cervical loss Data Data Last Documented VS Vital Signs Date Time Temp Pulse Resp B/P (MAP) Pulse Ox O2 Delivery O2 Flow Rate FiO2 03/06/18 02:12 78 132/69 (90) 03/06/18 00:10 18 98 Room Air 03/05/18 23:14 98.4 Orders Orders Urinalysis - C+S If Indicated (03/05/18 23:25) Complete Blood Count With Diff (03/05/18 23:55) Comprehensive Metabolic Panel (03/05/18 23:55) Magnesium (Mg) (03/05/18 23:55) Beta Hydroxybutyrate (Acetone) (03/05/18 23:55) Blood Glucose (03/05/18 23:55) Ecg Monitoring (03/05/18 23:55) Iv Access Insert/Monitor (03/05/18 23:55) Oximetry (03/05/18 23:55) NPO (03/05/18 23:55) Sodium Chlor 0.9% 1000 Ml Inj (Ns 1000 M (03/05/18 23:55) Sodium Chloride 0.9% Flush (Ns Flush) (03/06/18 00:00) Sodium Chlor 0.9% 1000 Ml Inj (Ns 1000 M (03/05/18 23:55) Blood Culture (03/06/18 00:09) Lactic Acid (03/06/18 00:09) Ct Abd/Pel W/O Iv Contrast (03/06/18 ) Insulin Human Regular Inj (Novolin R Inj (03/06/18 01:00) Vancomycin Inj (Vancomycin Inj) (03/06/18 01:15) Cefepime Inj (Maxipime Inj) (03/06/18 01:15) Gc And Chlamydia Pcr (03/06/18 01:06) Wet Prep Profile (03/06/18 01:06) Sodium Chlorid 0.9% 500 Ml Inj (Ns 500 M (03/06/18 01:15) Labs Laboratory Tests Test 03/05/18 23:30 03/06/18 00:10 03/06/18 00:22 03/06/18 02:05 Urine Color YELLOW Urine Turbidity CLEAR Urine pH 6.0 Urine Specific [place] LESS/EQUAL 1.005 Urine Protein NEG mg/dL Urine Glucose (UA) 1000 OR GREATER mg/dL Urine Ketones 40 mg/dL Urine Occult Blood MOD Urine Nitrite NEG Urine Bilirubin NEG Urine Urobilinogen 0.2 MG/DL Urine Leukocyte Esterase NEG Urine RBC 10-14 /hpf Urine WBC 0-2 /hpf Urine Squamous Epithelial Cells 6-8 /hpf Urine Bacteria OCC /hpf Microscopic Urinalysis Comment CULT NOT INDICATED White Blood Count 6.6 TH/MM3 Red Blood Count 4.47 MIL/MM3 Hemoglobin 13.2 GM/DL Hematocrit 39.1 % Mean Corpuscular Volume 87.5 FL Mean Corpuscular Hemoglobin 29.6 PG Mean Corpuscular Hemoglobin Concent 33.8 % Red Cell Distribution Width 12.2 % Platelet Count 446 TH/MM3 Mean Platelet Volume 8.9 FL Neutrophils (%) (Auto) 59.8 % Lymphocytes (%) (Auto) 30.2 % Monocytes (%) (Auto) 6.8 % Eosinophils (%) (Auto) 1.8 % Basophils (%) (Auto) 1.4 % Neutrophils # (Auto) 4.0 TH/MM3 Lymphocytes # (Auto) 2.0 TH/MM3 Monocytes # (Auto) 0.4 TH/MM3 Eosinophils # (Auto) 0.1 TH/MM3 Basophils # (Auto) 0.1 TH/MM3 CBC Comment DIFF FINAL Differential Comment Blood Urea Nitrogen 14 MG/DL Creatinine 1.10 MG/DL Random Glucose 391 MG/DL Total Protein 7.0 GM/DL Albumin 3.2 GM/DL Calcium Level 8.8 MG/DL Magnesium Level 2.1 MG/DL Alkaline Phosphatase 81 U/L Aspartate Amino Transf (AST/SGOT) 9 U/L Alanine Aminotransferase (ALT/SGPT) 19 U/L Total Bilirubin 0.3 MG/DL Sodium Level 137 MEQ/L Potassium Level 3.5 MEQ/L Chloride Level 102 MEQ/L Carbon Dioxide Level 24.5 MEQ/L Anion Gap 11 MEQ/L Estimat Glomerular Filtration Rate 61 ML/MIN B-Hydroxybutyrate 0.53 MMOL/L Lactic Acid Level 4.1 mmol/L Clue Cells (Wet Prep) NONE SEEN Vaginal Trichomonas (Wet Prep) NONE SEEN Vaginal Yeast (Wet Prep) NONE SEEN Vital Signs Date Time Temp Pulse Resp B/P (MAP) Pulse Ox O2 Delivery O2 Flow Rate FiO2 03/06/18 02:12 78 132/69 (90) 03/06/18 00:10 18 98 Room Air 03/05/18 23:14 98.4 93 20 138/73 (94) 99 Last 24 hours Impressions Abdomen/Pelvis CT 03/06/18 0000 Signed Impressions: Service Date/Time: Tuesday, March 06, 2018 00:21 - CONCLUSION: 1. At least 2, 2-3 mm nonobstructing calculi in the left renal collecting system. No right-sided stones. 2. Very difficult to follow the ureters in the deep pelvis. There may be a punctate, 2-3 mm stone at the right UVJ, however. No hydronephrosis. 3. Patient has an IUD in place. 4. Stable sclerotic area in the left ilium adjacent the SI joint. Stability over the past couple of years is encouraging for benignity. This probably represents a small bone island or hemangioma Fabrice Davila MD [facility] Medical Decision Making Medical Screen Exam Complete: Yes Emergency Medical Condition: Yes Medical Record Reviewed: Yes Differential Diagnosis Sepsis, DKA, UTI, pyelonephritis, PID, colitis Narrative Course Patient's condition improved after IV fluid bolus, IV antibiotics and insulin. Patient will be admitted to the hospital to continue evaluation for uncontrolled diabetes and possible pyelonephritis versus DKA. Sepsis Criteria SIRS Criteria (2 or more): Heart rate over 90, RR > 20 or PaCO2 < 32 Septic Shock Criteria: Lactic acid >=4 Physician Communication Physician Communication Patient's case has been discussed with Dr. Samayoa for admission to the hospital. Diagnosis Primary Impression: Type 1 diabetes mellitus with hyperglycemia, with long-term current use of insulin Additional Impressions: Severe sepsis Bilateral nephrolithiasis Admitting Information Admitting Physician Requests: Admit Condition: James Marie MD March 06, 2018 01:30
--- NOTE | 2018-03-06 01:35 | RADRPT ---
EXAM DATE/TIME: 03/06/2018 00:21 [place] COMPARISON: CT ABDOMEN & PELVIS W CONTRAST, February 25, 2016, 13:18. INDICATIONS : Right flank pain. ORAL CONTRAST: No oral contrast ingested. RADIATION DOSE: 7.24 CTDIvol (mGy) MEDICAL HISTORY : None SURGICAL HISTORY : None. ENCOUNTER: Initial ACUITY: 1 month PAIN SCALE: 7/10 LOCATION: Right flank TECHNIQUE: Volumetric scanning of the abdomen and pelvis was performed. Using automated exposure control and ad justment of the mA and/or kV according to patient size, radiation dose was kept as low as reasonably achievable to obtain optimal diagnostic quality images. DICOM format image data is available electro nically for review and comparison. FINDINGS: LOWER LUNGS: The visualized lower lungs are clear. LIVER: Homogeneous density without lesion. There is no dilation of the biliary tree. No calcified gallston es. SPLEEN: Normal size without lesion. PANCREAS: Within normal limits. KIDNEYS: Normal in size and shape. Punctate, 2-3 mm nonobstructing stones in the left renal collecting system. No stones on the right. No hydronephrosis. Right ureter is very difficult to follow into the deep pe lvis but there may be a punctate, 2 mm stone at the right UVJ. ADRENAL GLANDS: Within normal limits. VASCULAR: There is no aortic aneurysm. BOWEL/MESENTERY: The stomach, small bowel, and colon demonstrate no acute abnormality. There is no free intraperitone al air or fluid. The appendix is identified and is radiographically normal. ABDOMINAL WALL: Within normal limits. RETROPERITONEUM: There is no lymphadenopathy. BLADDER: No wall thickening or mass. REPRODUCTIVE: Within normal limits. IUD in place INGUINAL: There is no lymphadenopathy or hernia. MUSCULOSKELETAL: 1.3 cm sclerotic area in the left ilium adjacent to the SI joint is unchanged from prior. CONCLUSION: 1. At least 2, 2-3 mm nonobstructing calculi in the left renal collecting system. No right-sided ston es. 2. Very difficult to follow the ureters in the deep pelvis. There may be a punctate, 2-3 mm stone at the right UVJ, however. No hydronephrosis. 3. Patient has an IUD in place. 4. Stable sclerotic area in the left ilium adjacent the SI joint. Stability over the past couple of y ears is encouraging for benignity. This probably represents a small bone island or hemangioma Fabrice Davila MD on March 06, 2018 at 1:26 Board Certified Radiologist. This report was verified electronically.
[2018-03-06 02:12] VITALS: BP 132/69; PULSE 78
[2018-03-06] MEDS ORDERED: SODIUM CHLOR 0.9% 1000 ML INJ 1,000 ML IV SCH (02:20)
[2018-03-06] MEDS ORDERED: ONDANSETRON HCL 4 MG/2 ML VIAL IVP PRN (02:30)
[2018-03-06] MEDS ORDERED: SODIUM CHLORIDE 0.9% FLUSH 10 ML FLUSH IV FLUSH PRN (02:30)
[2018-03-06] MEDS ORDERED: LACTULOSE SYRUP 20 GM/30 ML CUP PO PRN (02:30)
[2018-03-06] MEDS ORDERED: SENNOSIDES 8.6 MG TAB PO PRN (02:30)
[2018-03-06] MEDS ORDERED: DEXTROSE 50% IN WATER 50 ML VIAL(D50) IV PUSH PRN (02:30)
[2018-03-06] MEDS ORDERED: BISACODYL 10 MG SUPP RECTAL PRN (02:30)
[2018-03-06] MEDS ORDERED: MAGNESIUM HYDROXIDE SUSP 30 ML CUP PO PRN (02:30)
[2018-03-06] MEDS ORDERED: GLUCAGON 1 MG/ML VIAL OTHER PRN (02:30)
[2018-03-06] MEDS ORDERED: NALOXONE HCL 0.4 MG/ML AMP IV PUSH PRN (02:30)
[2018-03-06 03:32] VITALS: BP 109/68; PULSE 83; RESP 20; TEMP 97.3; O2SAT 98
[2018-03-06] MEDS: ACETAMINOPHEN 325 MG TAB PO PRN ×2 (03:43→08:27)
[2018-03-06 08:00] VITALS: BP 110/69; PULSE 77; RESP 19; TEMP 97.2; O2SAT 98
[2018-03-06] MEDS ORDERED: INSULIN ASPART SUPPLEMENTAL SCALE SQ SCH (08:00)
[2018-03-06] MEDS: SODIUM CHLORIDE 0.9% FLUSH 10 ML FLUSH IV FLUSH SCH ×2 (09:00→21:16)
[2018-03-06] MEDS: DOCUSATE SODIUM 50 MG/SENNA 8.6 MG TAB PO SCH ×2 (09:00→21:00)
[2018-03-06] MEDS ORDERED: traMADol HCL 50 MG TAB PO PRN (10:30)
[2018-03-06 12:00] VITALS: BP 124/69; PULSE 94; RESP 20; TEMP 97.1; O2SAT 98
--- NOTE | 2018-03-06 12:40 | HHI.HP ---
[facility] Primary Care Physician Non-Staff Admission Diagnosis HYPERGLYCEMIA, SEPSIS Diagnoses: Chief Complaint: Dysuria and elevated blood sugar Travel History International Travel<30 Days: No Contact w/Intl Traveler <30 Da: No Traveled to Known Affected Are: No Sepsis Criteria SIRS Criteria (2 or more): Heart rate over 90, RR > 20 or PaCO2 < 32 Sepsis Criteria (SIRS+source): Infect source susp/known Septic Shock Criteria: Lactic acid >=4 History of Present Illness This patient is a 27-year-old female with a history of type 1 diabetes which she is in follow-up with her primary care provider at the [facility]. She reports blood sugars greater than 600 at home associated with fever chills right flank pain nausea and vomiting. Patient has been on several courses of antibiotics due to presumed urinary tract infection. She completed 2 courses of Levaquin and was on Macrobid. She came to the emergency room because her sugars were so high. She had urinalysis which was relatively unremarkable and did have some flank pain. She did have evidence of kidney stones on imaging. Patient has been recommended for further evaluation and observation due to apparent sepsis likely related to urinary tract infection with stones. With antibiotics her blood sugars have improved and the patient feels a lot better especially after IV hydration. She reports both her mother and her brother both had kidney stones Review of Systems Constitutional: COMPLAINS OF: Fever, Chills, DENIES: Diaphoretic episodes, Fatigue, Weight gain, Weight loss, Dizziness, Change in appetite, Night Sweats Endocrine: DENIES: Abnorml menstrual pattern, Heat/cold intolerance, Polydipsia , Polyuria, Polyphagia Eyes: DENIES: Blurred vision, Diplopia, Eye inflammation, Eye pain, Vision loss , Photosensitivity, Double Vision Ears, nose, mouth, throat: DENIES: Tinnitus, Hearing loss, Vertigo, Nasal discharge, Oral lesions, Throat pain, Hoarseness, Ear Pain, Running Nose, Epistaxis, Sinus Pain, Toothache, Odynophagia Respiratory: DENIES: Apneas, Cough, Snoring, Wheezing, Hemoptysis, Sputum production, Shortness of breath Cardiovascular: DENIES: Chest pain, Palpitations, Syncope, Dyspnea on Exertion , PND, Lower Extremity Edema, Orthopnea, Claudication Gastrointestinal: DENIES: Abdominal pain, Black stools, Bloody stools, Constipation, Diarrhea, Nausea, Vomiting, Difficulty Swallowing, Anorexia Genitourinary: COMPLAINS OF: Urinary frequency, Urgency, DENIES: Abnormal vaginal bleeding, Dysmenorrhea, Dyspareunia, Sexual dysfunction, Urinary incontinence, Hematuria, Dysuria, Nocturia, Vaginal discharge Musculoskeletal: DENIES: Joint pain, Muscle aches, Stiffness, Joint Swelling, Back pain, Neck pain Integumentary: DENIES: Abnormal pigmentation, Pruritus, Rash, Nail changes, Breast masses, Breast skin changes, Nipple discharge Hematologic/lymphatic: DENIES: Bruising, Lymphadenopathy Immunologic/allergic: DENIES: Eczema, Urticaria Neurologic: DENIES: Abnormal gait, Headache, Localized weakness, Paresthesias, Seizures, Speech Problems, Tremor, Poor Balance Except as stated in HPI: all other systems reviewed are Neg Past Family Social History Past Medical History Type 1 diabetes mellitus Recurrent UTI Past Surgical History Insulin pump, wisdom tooth extraction Reported Medications Reviewed in the EMR Allergies: Coded Allergies: Sulfa (Sulfonamide Antibiotics) (Unverified Allergy, Severe, SWELLING AND ITCHING, 03/05/18) cefdinir (Unverified Allergy, Mild, ITCHING NAUSEA DIARRHEA, 03/05/18) *MDRO Multi-Drug Resistant Organism (Verified Adverse Reaction, Unknown, ) MRSA (leg wound) - 10/19/08 Uncoded Allergies: ZOYSN (Allergy, Mild, NAUSEA DIARRHEA ITCHING, 02/23/17) Family History Mother and brother have kidney stones I but are otherwise healthy Social History No current tobacco or alcohol dependency, is a [id number] mom Physical Exam Vital Signs Vital Signs Date Time Temp Pulse Resp B/P (MAP) Pulse Ox O2 Delivery O2 Flow Rate FiO2 03/06/18 09:27 18 03/06/18 08:00 97.2 77 19 110/69 (83) 98 03/06/18 03:35 03/06/18 03:32 97.3 83 20 109/68 (82) 98 03/06/18 02:12 78 132/69 (90) 03/06/18 00:10 18 98 Room Air 03/05/18 23:14 98.4 93 20 138/73 (94) 99 Physical Exam GENERAL: This is a well-nourished, well-developed patient, in no apparent distress. SKIN: No rashes, ecchymoses or lesions. Cool and dry. HEAD: Atraumatic. Normocephalic. No temporal or scalp tenderness. EYES: Pupils equal round and reactive. Extraocular motions intact. No scleral icterus. No injection or drainage. ENT: Nose without bleeding, purulent drainage or septal hematoma. Throat without erythema, tonsillar hypertrophy or exudate. Uvula midline. Airway patent. NECK: Trachea midline. No JVD or lymphadenopathy. Supple, nontender, no meningeal signs. CARDIOVASCULAR: Regular rate and rhythm without murmurs, gallops, or rubs. RESPIRATORY: Clear to auscultation. Breath sounds equal bilaterally. No wheezes , rales, or rhonchi. GASTROINTESTINAL: Abdomen soft, non-tender, nondistended. No hepato-splenomegaly , or palpable masses. No guarding. MUSCULOSKELETAL: Extremities without clubbing, cyanosis, or edema. No joint tenderness, effusion, or edema noted. No calf tenderness. Negative Homans sign bilaterally. NEUROLOGICAL: Awake and alert. Cranial nerves II through XII intact. Motor and sensory grossly within normal limits. Five out of 5 muscle strength in all muscle groups. Normal speech. Laboratory Laboratory Tests Test 03/05/18 23:30 03/06/18 00:10 03/06/18 00:22 03/06/18 02:05 Urine Color YELLOW Urine Turbidity CLEAR Urine pH 6.0 Urine Specific [place] LESS/EQUAL 1.005 Urine Protein NEG Urine Glucose (UA) 1000 OR GREATER Urine Ketones 40 Urine Occult Blood MOD Urine Nitrite NEG Urine Bilirubin NEG Urine Urobilinogen 0.2 Urine Leukocyte Esterase NEG Urine RBC 10-14 Urine WBC 0-2 Urine Squamous Epithelial Cells 6-8 Urine Bacteria OCC Microscopic Urinalysis Comment CULT NOT INDICATED White Blood Count 6.6 Red Blood Count 4.47 Hemoglobin 13.2 Hematocrit 39.1 Mean Corpuscular Volume 87.5 Mean Corpuscular Hemoglobin 29.6 Mean Corpuscular Hemoglobin Concent 33.8 Red Cell Distribution Width 12.2 Platelet Count 446 Mean Platelet Volume 8.9 Neutrophils (%) (Auto) 59.8 Lymphocytes (%) (Auto) 30.2 Monocytes (%) (Auto) 6.8 Eosinophils (%) (Auto) 1.8 Basophils (%) (Auto) 1.4 Neutrophils # (Auto) 4.0 Lymphocytes # (Auto) 2.0 Monocytes # (Auto) 0.4 Eosinophils # (Auto) 0.1 Basophils # (Auto) 0.1 CBC Comment DIFF FINAL Differential Comment Blood Urea Nitrogen 14 Creatinine 1.10 Random Glucose 391 Total Protein 7.0 Albumin 3.2 Calcium Level 8.8 Magnesium Level 2.1 Alkaline Phosphatase 81 Aspartate Amino Transf (AST/SGOT) 9 Alanine Aminotransferase (ALT/SGPT) 19 Total Bilirubin 0.3 Sodium Level 137 Potassium Level 3.5 Chloride Level 102 Carbon Dioxide Level 24.5 Anion Gap 11 Estimat Glomerular Filtration Rate 61 B-Hydroxybutyrate 0.53 Lactic Acid Level 4.1 Clue Cells (Wet Prep) NONE SEEN Vaginal Trichomonas (Wet Prep) NONE SEEN Vaginal Yeast (Wet Prep) NONE SEEN Chlamydia trachomatis DNA (PCR) NOT DETECTED Neisseria gonorrhoeae DNA (PCR) NOT DETECTED Date/Time Source Procedure Growth Status 03/06/18 00:18 Blood Peripheral Aerobic Blood Culture Pending Received 03/06/18 00:18 Blood Peripheral Anaerobic Blood Culture Pending Received Result Diagram: 03/06/18 0010 03/06/18 0010 Septic Shock Reassessment Septic shock perfusion: reassessment completed Caprini VTE Risk Assessment Caprini VTE Risk Assessment: No/Low Risk (score <= 1) Caprini Risk Assessment Model Point Value = 1 Point Value = 2 Point Value = 3 Point Value = 5 Age 41-60 Minor surgery BMI > 25 kg/m2 Swollen legs Varicose veins or History of unexplained or recurrent spontaneous Oral contraceptives or hormone replacement Sepsis (< 1 month) Serious lung disease, including pneumonia (< 1 month) Abnormal pulmonary function Acute myocardial infarction Congestive heart failure (< 1 month) History of inflammatory bowel disease Medical patient at bed rest Age 61-74 Arthroscopic surgery Major open surgery (> 45 min) Laparoscopic surgery (> 45 min) Malignancy Confined to bed (> 72 hours) Immobilizing plaster cast Central venous access Age >= 75 History of VTE Family history of VTE Factor V Leiden Prothrombin [id number] Lupus anticoagulant Anticardiolipin antibodies Elevated serum homocysteine Heparin-induced thrombocytopenia Other congenital or acquired thrombophilia Stroke (< 1 month) Elective arthroplasty Hip, pelvis, or leg fracture Acute spinal cord injury (< 1 month) Prophylaxis Regimen Total Risk Factor Score Risk Level Prophylaxis Regimen 0-1 Low Early ambulation 2 Moderate Order ONE of the following: *Sequential Compression Device (SCD) *Heparin 5000 units SQ BID 3-4 Higher Order ONE of the following medications: *Heparin 5000 units SQ TID *Enoxaparin/Lovenox 40 mg SQ daily (WT < 150 kg, CrCl > 30 mL/min) *Enoxaparin/Lovenox 30 mg SQ daily (WT < 150 kg, CrCl > 10-29 mL/min) *Enoxaparin/Lovenox 30 mg SQ BID (WT < 150 kg, CrCl > 30 mL/min) AND/OR *Sequential Compression Device (SCD) 5 or more Highest Order ONE of the following medications: *Heparin 5000 units SQ TID (Preferred with Epidurals) *Enoxaparin/Lovenox 40 mg SQ daily (WT < 150 kg, CrCl > 30 mL/min) *Enoxaparin/Lovenox 30 mg SQ daily (WT < 150 kg, CrCl > 10-29 mL/min) *Enoxaparin/Lovenox 30 mg SQ BID (WT < 150 kg, CrCl > 30 mL/min) AND *Sequential Compression Device (SCD) Assessment and Plan Problem List: (1) UTI (urinary tract infection) ICD Code: N39.0 - Urinary tract infection, site not specified Status: Acute Plan: Continue with empiric therapy, urinalysis unremarkable. Patient also with renal stones which appear to be hereditary given her mother and f and brothers history. Will strain urine and follow-up clinic Follow-up with blood culture results (2) Type 1 diabetes mellitus with hyperglycemia, with long-term current use of insulin ICD Code: E10.65 - Type 1 diabetes mellitus with hyperglycemia Status: Chronic Plan: Patient uses Apidra but she will continue to use at her home regimen Assessment and Plan Patient will use a Peter and her likely discharge home in a.m. pending progress Discussed Condition With Patient Florina Núñez MD March 06, 2018 12:40
[2018-03-06] MEDS ORDERED: INSULIN GLULISINE SQ SCH (12:45)
[2018-03-06] MEDS ORDERED: INFO FOR PHARMACY/READ COMMENT SCH (12:45)
[2018-03-06] MEDS: ACETAMIN 325 MG/BUTALBITAL 50 MG/CAFFEINE 40 MG TAB PO PRN ×2 (16:10→22:20)
[2018-03-06] MEDS: AMOXICILLIN/CLAVULANATE K 500 MG TAB PO SCH ×2 (16:49→21:16)
[2018-03-06 20:00] VITALS: BP 108/75; PULSE 92; RESP 20; TEMP 96; O2SAT 100
[2018-03-06] MEDS: diphenhydrAMINE HCL 50 MG CAP PO PRN (23:01)
[2018-03-07] VITALS: BP 112/70; PULSE 95; RESP 20; TEMP 96.8; O2SAT 99
[2018-03-07 06:43] LABS: AUTOMATED NEUTROPHIL # 3.1 TH/MM3 (1.8-7.7); BASOPHIL # 0.1 TH/MM3 (0-0.2); BASOPHIL % 1.9 % (0.0-2.0); EOSINOPHIL # 0.1 TH/MM3 (0-0.4); EOSINOPHIL % 2.6 % (0.0-4.0); HEMATOCRIT 37.3 % (35.0-46.0); HEMOGLOBIN 12.6 GM/DL (11.6-15.3); LYMPH % 33.4 % (9.0-44.0); LYMPHOCYTE # 1.8 TH/MM3 (1.0-4.8); MEAN CELL VOLUME 87.6 FL (80.0-100.0); MEAN CORPUSCULAR HEMOGLOBIN 29.5 PG (27.0-34.0); MEAN CORPUSCULAR HGB CONC 33.7 % (32.0-36.0); MEAN PLATELET VOLUME 9.4 FL (7.0-11.0); MONO % 7.5 % (0.0-8.0); MONOCYTE # 0.4 TH/MM3 (0-0.9); NEUT % 54.6 % (16.0-70.0); PLATELET COUNT 439 TH/MM3 (150-450); RED BLOOD COUNT 4.26 MIL/MM3 (4.00-5.30); RED CELL DISTRIBUTION WIDTH 12.6 % (11.6-17.2); WHITE BLOOD COUNT 5.5 TH/MM3 (4.0-11.0)
[2018-03-07 06:45] LABS: BICARBONATE 26.1 MEQ/L (21.0-32.0); CALCIUM 8.6 MG/DL (8.5-10.1)
[2018-03-07 06:49] LABS: CREATININE 0.72 MG/DL (0.50-1.00)
[2018-03-07] MEDS: SODIUM CHLORIDE 0.9% FLUSH 10 ML FLUSH IV FLUSH SCH (08:07)
[2018-03-07] MEDS: DOCUSATE SODIUM 50 MG/SENNA 8.6 MG TAB PO SCH (08:07)
[2018-03-07] MEDS: ACETAMIN 325 MG/BUTALBITAL 50 MG/CAFFEINE 40 MG TAB PO PRN (08:07)
[2018-03-07] MEDS: AMOXICILLIN/CLAVULANATE K 500 MG TAB PO SCH (08:07)
[2018-03-07 08:23] VITALS: BP 103/74; PULSE 97; RESP 20; TEMP 97.6; O2SAT 97
[2018-03-07 09:07] VITALS: RESP 18
[2018-03-07] MEDS ORDERED: Amoxicil-Clavulanate PO ×2 (10:04→11:14)
[2018-03-07] MEDS ORDERED: FLUC150T PO (10:05)
--- NOTE | 2018-03-07 10:05 | HHI.DCPOC ---
Discharge Care Plan Diagnosis: (1) UTI (urinary tract infection) (2) Hyperglycemia due to type 1 diabetes mellitus Goals to Promote Your Health * To prevent worsening of your condition and complications * To maintain your health at the optimal level Directions to Meet Your Goals Take your medications as prescribed Follow your dietary instruction Follow activity as directed Keep your appointments as scheduled Take your immunizations and boosters as scheduled If your symptoms worsen call your PCP, if no PCP go to Urgent Care Center or Emergency Room Smoking is Dangerous to Your Health. Avoid second hand smoke Call the 24-hour hour crisis hotline for domestic abuse at Florina Núñez MD March 07, 2018 10:05
[2018-03-07] MEDS ORDERED: FLUCONAZOLE 100 MG TAB PO ONE (11:00)
[2018-03-07] MEDS: diphenhydrAMINE HCL 50 MG CAP PO PRN (11:04)
--- NOTE | 2018-03-07 11:08 | HHI.PR ---
Subjective Remarks Patient seen today in follow-up for diabetes, type I which is controlled No further discomfort Cultures negative Discharge plan discussed with patient Objective Vitals Vital Signs Date Time Temp Pulse Resp B/P (MAP) Pulse Ox O2 Delivery O2 Flow Rate FiO2 03/07/18 08:23 97.6 97 20 103/74 (84) 97 03/07/18 00:00 96.8 95 20 112/70 (84) 99 03/06/18 20:00 96.0 92 20 108/75 (86) 100 03/06/18 17:10 18 03/06/18 12:00 97.1 94 20 124/69 (87) 98 03/06/18 11:58 18 I/O 03/06/18 03/06/18 03/06/18 03/07/18 03/07/18 03/07/18 07:00 15:00 23:00 07:00 15:00 23:00 Intake Total 2120 ml 1120 ml 1000 ml 240 ml 120 ml Output Total 800 ml 0 ml Balance 2120 ml 1120 ml 200 ml 240 ml 120 ml Intake Oral 120 ml 120 ml 1000 ml 240 ml 120 ml IV Total 2000 ml 1000 ml Output Urine Total 800 ml 0 ml # Voids 1 1 # Bowel Movements 1 0 Result Diagram: 03/07/188 03/07/18447 Objective Remarks GENERAL: This is a well-nourished, well-developed patient, in no apparent distress. CARDIOVASCULAR: Regular rate and rhythm without murmurs, gallops, or rubs. RESPIRATORY: Clear to auscultation. Breath sounds equal bilaterally. No wheezes , rales, or rhonchi. GASTROINTESTINAL: Abdomen soft, non-tender, nondistended. Normal active bowel sounds MUSCULOSKELETAL: Extremities without clubbing, cyanosis, or edema. NEURO: Alert & Oriented x4 to person, place, time, situation. Moves all ext x4 A/P Problem List: (1) UTI (urinary tract infection) ICD Code: N39.0 - Urinary tract infection, site not specified Status: Acute Plan: Continue with empiric therapy with oral antibiotics Follow-up outpatient for renal stones (2) Type 1 diabetes mellitus with hyperglycemia, with long-term current use of insulin ICD Code: E10.65 - Type 1 diabetes mellitus with hyperglycemia Status: Chronic Plan: Continue home insulin pump (3) Vaginitis ICD Code: N76.0 - Acute vaginitis Plan: Diflucan p.o. 1 Discharge Planning Discharge home Florina Núñez MD March 07, 2018 11:08
== END 2018-03-07 12:45 | disposition home or self-care (01) ==
LOC: PHED 23:11 → PHEDA 03-06 02:23 → PH3A 03-06 03:21
PROVIDERS: ADMIT Hospitalist; ATTEND Hospitalist
DX: N39.0 Urinary tract infection, site not specified (principal); A41.9 Sepsis, unspecified organism; R65.20 Severe sepsis without septic shock; E10.65 Type 1 diabetes mellitus with hyperglycemia; N76.0 Acute vaginitis; N20.0 Calculus of kidney; Z79.4 Long term (current) use of insulin
CPT/HCPCS: 74176; 80048; 80053; 81001; 82010; 82948; 83605; 83735; 85025; 87040; 87210; 87491; 87591; 96361; 96365; 96366; 96375; 99285; G0378; J0692; J1815; J3370; J7030; J7040; J7050; Q0163